=== PATIENT | male | born 1985 | race Caucasian/White ===

== ENCOUNTER 2018-01-17 08:48 | Emergency (ER) | payer MEDICARE, MEDICAID ==
[2018-01-17 09:28] LABS: Basophils # (auto) 0.1 uL; Basophils % (auto) 0.5 % (0.0-2.0); Eosinophils # (auto) 0.1 uL; Eosinophils % (auto) 0.7 % (0.0-7.0); Hematocrit 48.8 % (41.0-53.0); Hemoglobin 17.2 g/dL (13.5-17.5); Lymphocytes # (auto) 1.8 uL; Lymphocytes % (auto) 19.2 % (10.0-50.0); Mean Corpuscular Hemoglobin 32.9 pg (28.0-32.0); Mean Corpuscular Hgb Conc. 35.3 g/dL (32.0-36.0); Mean Corpuscular Volume 93.1 fL (80.0-100.0); Monocytes # (auto) 1.3 uL; Monocytes % (auto) 13.9 % (0.0-12.0); Neutrophils # (auto) 6.1 uL; Neutrophils % (auto) 65.7 % (37.0-80.0); Nucleated Red Blood Cells % 0.1 %; Platelet Count (auto) 202 10^3/uL (140-450); Red Blood Cells 5.24 10^6/uL (4.5-5.90); Red Cell Distribution Width 12.9 % (11.8-14.3); White Blood Cell 9.3 10^3/uL (4.4-10.8)
[2018-01-17 10:01] LABS: Alanine Aminotransferase 105 U/L (16-61); Albumin 4.2 g/dL (3.4-5.0); Alkaline Phosphatase 109 U/L (45-117); Anion Gap 8 (5-15); Aspartate Aminotransferase 109 U/L (15-37); BUN/Creatinine Ratio 29.7; Bilirubin, Total 1.1 mg/dL (0.2-1.0); Blood Alcohol < 3.0 mg/dL (0-5); Blood Urea Nitrogen 22 mg/dL (7-18); Calcium 9.1 mg/dL (8.5-10.1); Carbon Dioxide 26 mmol/L (21-32); Chloride 100 mmol/L (98-107); GFR African American 160 mL/min; GFR Non-African American 132 mL/min; Glucose 96 mg/dL (74-106); Potassium 4.1 mmol/L (3.5-5.1); Sodium 134 mmol/L (136-145); Total Protein 7.5 g/dL (6.4-8.2)
[2018-01-17] MEDS ORDERED: SODIUM CHLORIDE 0.9% 1,000 ML IV ONE (12:48)
[2018-01-17] MEDS ORDERED: LORazepam 2MG/ML-1ML VIAL IV ONE (13:00)
[2018-01-17 14:40] LABS: Urine Bacteria NONE SEEN /hpf (None Seen); Urine Blood Negative /uL (Negative); Urine Mucus FEW (None Seen); Urine Specific Gravity 1.013 (1.001-1.035); Urine WBC <1 /hpf (0 - 3)
[2018-01-17 14:57] LABS: Alcohol, Urine < 3.0 mg/dL (0-5); Amphetamine Screen, Urine POSITIVE (NEGATIVE); Barbiturate Scree,Urine NEGATIVE (NEGATIVE); Benzodiazephine Screen, Urine NEGATIVE (NEGATIVE); Cannabinoid Screen, Urine POSITIVE (NEGATIVE); Cocaine Screen, Urine NEGATIVE (NEGATIVE); Opiate Scree,Urine NEGATIVE (NEGATIVE); Phencyclidine Screen, Urine NEGATIVE (NEGATIVE)
[2018-01-17 16:18] VITALS: BP 122/79
[2018-01-17] MEDS ORDERED: PHENYTOIN SODIUM 100 MG CAP PO ONE (17:00)
== END 2018-01-17 17:15 | disposition home or self-care (01) ==
LOC: ER 08:51
DX: G40.909 Epilepsy, unspecified, not intractable, without status epilepticus (principal); R89.2 Abnormal level of other drugs, medicaments and biological substances in specimens from other organs, systems and tissues; F15.10 Other stimulant abuse, uncomplicated; F12.10 Cannabis abuse, uncomplicated; F17.210 Nicotine dependence, cigarettes, uncomplicated
CPT/HCPCS: 36415; 70450; 80053; 80185; 80307; 80320; 81001; 83735; 85025; 96374; 99285; J2060

== ENCOUNTER 2018-01-24 20:10 | Emergency (ER) | payer MEDICARE, MEDICAID ==
[~2018-01-24] VITALS: Ht 180.3 cm; Wt 95.3 kg
[2018-01-24 20:18] VITALS: BP 131/87
== END 2018-01-25 01:36 | disposition left against medical advice (07) ==
LOC: EDBD 20:10 → ER 20:10
DX: S01.81XA Laceration without foreign body of other part of head, initial encounter (principal); Z53.21 Procedure and treatment not carried out due to patient leaving prior to being seen by health care provider; Y08.89XA Assault by other specified means, initial encounter; Y93.89 Activity, other specified; Y99.8 Other external cause status; Y92.89 Other specified places as the place of occurrence of the external cause

== ENCOUNTER 2019-04-22 19:25 | Emergency (ER) | payer MEDICARE, MEDICAID ==
[~2019-04-22] VITALS: Ht 182.9 cm; Wt 122.5 kg
[2019-04-22] MEDS ORDERED: PHENYTOIN SODIUM 100 MG CAP PO ONE (19:45)
[2019-04-22] MEDS ORDERED: PHENYTOIN IV DILANTIN 500 MG in SODIUM CHL 0.9% 100 ML IV ONE (19:45)
[2019-04-22 20:06] LABS: Eosinophils # (auto) 0.2 uL; Nucleated Red Blood Cells % 0.1 %
[2019-04-22 20:12] LABS: Basophils # (auto) 0.1 uL; Basophils % (auto) 0.9 % (0.0-2.0); Eosinophils % (auto) 1.6 % (0.0-7.0); Hematocrit 50.1 % (41.0-53.0); Hemoglobin 17.7 g/dL (13.5-17.5); Lymphocytes # (auto) 2.6 uL; Lymphocytes % (auto) 26.7 % (10.0-50.0); Mean Corpuscular Hemoglobin 32.6 pg (28.0-32.0); Mean Corpuscular Hgb Conc. 35.3 g/dL (32.0-36.0); Mean Corpuscular Volume 92.2 fL (80.0-100.0); Monocytes # (auto) 1.2 uL; Monocytes % (auto) 12.2 % (0.0-12.0); Neutrophils # (auto) 5.6 uL; Neutrophils % (auto) 58.6 % (37.0-80.0); Platelet Count (auto) 240 10^3/uL (140-450); Red Blood Cells 5.43 10^6/uL (4.5-5.90); White Blood Cell 9.6 10^3/uL (4.4-10.8)
[2019-04-22 20:19] VITALS: BP 120/85
[2019-04-22 20:25] LABS: Albumin 3.5 g/dL (3.4-5.0); BUN/Creatinine Ratio 14.1; Calcium 8.6 mg/dL (8.5-10.1); Potassium 3.6 mmol/L (3.5-5.1)
[2019-04-22 20:27] LABS: Bilirubin, Total 0.4 mg/dL (0.2-1.0); Total Protein 6.7 g/dL (6.4-8.2)
[2019-04-22] MEDS ORDERED: HYDROcodone-ACET 10/325MG TAB PO ONE (21:30)
== END 2019-04-22 22:38 | disposition home or self-care (01) ==
LOC: ER 19:26
DX: M79.605 Pain in left leg (principal); M79.604 Pain in right leg; F17.210 Nicotine dependence, cigarettes, uncomplicated; F12.10 Cannabis abuse, uncomplicated; G40.802 Other epilepsy, not intractable, without status epilepticus
CPT/HCPCS: 36415; 80053; 80320; 85025; 93005; 94761; 96365; 99284; J1165; 80307

== ENCOUNTER 2023-05-24 14:33 | Inpatient (IN) | payer OTHER, MEDICAID ==
[~2023-05-24] VITALS: Ht 182.9 cm; Wt 109.1 kg
[2023-05-24] MEDS ORDERED: LORazepam 2MG/ML-1ML VIAL IM ONE (14:45)
[2023-05-24 15:10] LABS: Basophils # (auto) 0 10 ^3/uL (0-0.2); Basophils % (auto) 0.3 % (0.0-2.0); Eosinophils # (auto) 0.1 10 ^3/uL (0-0.8); Eosinophils % (auto) 0.5 % (0.0-7.0); Hematocrit 49.8 % (41.0-53.0); Hemoglobin 17.5 g/dL (13.5-17.5); Lymphocytes # (auto) 1.4 10 ^3/uL (0.4-5.4); Lymphocytes % (auto) 14.4 % (10.0-50.0); Mean Corpuscular Hemoglobin 32.6 pg (28.0-32.0); Mean Corpuscular Hgb Conc. 35.1 g/dL (32.0-36.0); Mean Corpuscular Volume 92.8 fL (80.0-100.0); Monocytes # (auto) 0.8 10 ^3/uL (0-1.3); Monocytes % (auto) 7.7 % (0.0-12.0); Neutrophils # (auto) 7.6 10 ^3/uL (1.6-8.6); Neutrophils % (auto) 77.1 % (37.0-80.0); Nucleated Red Blood Cells % 0.2 %; Red Blood Cells 5.36 10^6/uL (4.5-5.90); Red Cell Distribution Width 12.9 % (11.8-14.3); White Blood Cell 9.9 10^3/uL (4.4-10.8)
[2023-05-24 15:35] LABS: Alanine Aminotransferase 38 U/L (7-40); Albumin 4.7 g/dL (3.2-4.8); Alkaline Phosphatase 70 U/L (46-116); Anion Gap 7 (5-15); Aspartate Aminotransferase 21 U/L (13-40); Bilirubin, Total 0.5 mg/dL (0.2-1.0); Calcium 9.7 mg/dL (8.5-10.1); Carbon Dioxide 26 mmol/L (20-30); Chloride 106 mmol/L (98-107); Glucose 94 mg/dL (74-106); Potassium 3.8 mmol/L (3.5-5.1); Sodium 139 mmol/L (136-145)
[2023-05-24 15:36] LABS: Total Protein 7.2 g/dL (5.7-8.2)
[2023-05-24] MEDS ORDERED: LABETALOL HCL 5 MG/ML 4ML SYRINGE IV ONE (15:45)
[2023-05-24 15:47] LABS: BUN/Creatinine Ratio 6.4 (10.0-20.0); Blood Urea Nitrogen < 5 mg/dL (9-23)
[2023-05-24 15:55] VITALS: PULSE 91; RESP 16; O2SAT 96
[2023-05-24 19:21] LABS: Urine Bacteria NONE SEEN /hpf (None Seen); Urine Blood Negative /uL (Negative); Urine Clarity Clear (Clear); Urine Color Colorless (Yellow); Urine Protein, UAD Negative (Negative); Urine Specific Gravity 1.009 (1.001-1.035); Urine Urobilinogen Normal (Negative); Urine WBC <1 /hpf (0 - 3); Urine pH 7.5 (5.0-8.0)
[2023-05-24 19:30] LABS: Amphetamine Screen, Urine Neg (NEGATIVE); Barbiturate Scree,Urine Neg (NEGATIVE); Benzodiazephine Screen, Urine Neg (NEGATIVE); Cannabinoid Screen, Urine Pos (NEGATIVE); Cocaine Screen, Urine Neg (NEGATIVE); Opiate Scree,Urine Neg (NEGATIVE); Phencyclidine Screen, Urine Neg (NEGATIVE)
[2023-05-24 20:15] VITALS: PULSE 97; RESP 25; O2SAT 93
[2023-05-24] MEDS ORDERED: ACETAMINOPHEN 325 MG TAB PO PRN (22:15)
[2023-05-24] MEDS ORDERED: LORazepam 2MG/ML-1ML VIAL IV PRN (22:15)
[2023-05-24] MEDS ORDERED: DOCUSATE SOD 100 MG CAP PO PRN (22:15)
[2023-05-24] MEDS ORDERED: ONDANSETRON HCL 4 MG/2 ML VIAL IV PRN (22:15)
[2023-05-24] MEDS ORDERED: MORPHINE SULFATE INJ 2 MG/ml SYRG IV PRN (22:15)
[2023-05-24] MEDS ORDERED: NITROGLYCERIN 0.4 MG SL TAB SL PRN (22:15)
[2023-05-24] MEDS ORDERED: RISP4TAB53 PO (22:39)
[2023-05-24] MEDS ORDERED: VORT10TA PO (22:39)
[2023-05-24] MEDS ORDERED: QUET300T14 PO (22:39)
[2023-05-24] MEDS ORDERED: GABA-1308 PO (22:39)
[2023-05-24] MEDS: SODIUM CHLORIDE 0.9% 1,000 ML IV SCH (22:44)
[2023-05-25 11:04] LABS: Basophils # (auto) 0.1 10 ^3/uL (0-0.2); Basophils % (auto) 0.7 % (0.0-2.0); Eosinophils # (auto) 0.1 10 ^3/uL (0-0.8); Eosinophils % (auto) 1.4 % (0.0-7.0); Hematocrit 48.5 % (41.0-53.0); Lymphocytes # (auto) 2.2 10 ^3/uL (0.4-5.4); Lymphocytes % (auto) 28.9 % (10.0-50.0); Mean Corpuscular Hemoglobin 32.8 pg (28.0-32.0); Mean Corpuscular Volume 93.6 fL (80.0-100.0); Monocytes # (auto) 0.6 10 ^3/uL (0-1.3); Monocytes % (auto) 8.1 % (0.0-12.0); Neutrophils # (auto) 4.6 10 ^3/uL (1.6-8.6); Neutrophils % (auto) 60.9 % (37.0-80.0); Nucleated Red Blood Cells % 0.3 %; Red Blood Cells 5.18 10^6/uL (4.5-5.90); Red Cell Distribution Width 12.9 % (11.8-14.3); White Blood Cell 7.6 10^3/uL (4.4-10.8)
[2023-05-25 11:20] LABS: Anion Gap 6 (5-15); BUN/Creatinine Ratio 5.6 (10.0-20.0); Blood Urea Nitrogen 5 mg/dL (9-23); Calcium 9.4 mg/dL (8.5-10.1); Carbon Dioxide 26 mmol/L (20-30); Chloride 106 mmol/L (98-107); Glucose 86 mg/dL (74-106); Sodium 138 mmol/L (136-145)
[2023-05-25 13:13] VITALS: BP 153/79; PULSE 113; RESP 17; O2SAT 94
[2023-05-25] MEDS: SODIUM CHLORIDE 0.9% 1,000 ML IV SCH (15:33)
== END 2023-05-25 22:41 | disposition left against medical advice (07) | DRG 101 ==
LOC: EDUNIT# 14:33 → ER 14:33 → EDBD 14:33 → TELE 22:13
PROVIDERS: ADMIT Nurse Practitioner Family; ATTEND Nurse Practitioner Family
DX: R56.9 Unspecified convulsions (principal); F17.210 Nicotine dependence, cigarettes, uncomplicated; F25.9 Schizoaffective disorder, unspecified; F31.9 Bipolar disorder, unspecified; G20.A1 Parkinson's disease without dyskinesia, without mention of fluctuations; Z53.21 Procedure and treatment not carried out due to patient leaving prior to being seen by health care provider; Z79.899 Other long term (current) drug therapy
CPT/HCPCS: 36415; 70450; 80048; 80053; 80307; 81001; 85025; G0378

== ENCOUNTER 2025-02-03 11:38 | Inpatient (IN) | payer OTHER ==
[~2025-02-03] VITALS: Ht 182.9 cm; Wt 94.0 kg
[~2025-02-03 11:38] MED LIST: GABA-1308 PO; QUET300T14 PO; RISP4TAB53 PO; VORT10TA PO
--- NOTE | 2025-02-03 11:44 | ED.PDOC ---
GI ASSESSMENT HPI Comments 39 year old male presents to the ED via EMS with a chief complaint of abdominal pain onset 3 months. Patient states he has been experiencing diffused abdominal pain for the past 3 months, after cholecystectomy surgery. He is also experiencing nausea/vomiting. Upon EMS arrival, patient showed them an empty bottle of green tea extract that , patient states he took the whole bottle, also states he took 2 boxes Benadryl, wanted to "hurt himself". Rates pain 05/23. PMHx depression,schizophrenia, seizures. No other symptoms or modifying factors present at this time. Time Seen by MD: 11:38 Primary Care Provider: NICK Reviewed Notes: Medications, Allergies Allergies: Coded Allergies: NO KNOWN ALLERGIES (Unverified , 01/17/18) Home Meds Reported Medications Vortioxetine Hydrobromide (Trintellix) 10 Mg Tab, 15 MG PO QPM, TAB 05/24/23 Risperidone (Risperidone) 4 Mg Tab, 4 MG PO BID, TAB 05/24/23 Gabapentin (Gabapentin) 100 Mg Cap, 100 MG PO BID, CAP 05/24/23 Quetiapine Fumerate (Seroquel) 300 Mg Tab, 200 MG PO QPM, TAB 05/24/23 Information Source: Patient Mode of Arrival: Ambulatory Timing: Months Duration: Since onset Prehospital treatment: None Quality: Aching, Sharp Severity: Moderate Recent: None Recent Hx of: None Pain Location: Diffuse Associated sign and symptoms: Nausea, Vomiting, Abdominal Pain Past Medical History PAST MEDICAL HISTORY: Depression, Schizophrenia, Seizures Surgical History: Cholecystectomy Family History Family History: No family hx of Liver aniyah, No family hx of Lung aniyah, No family hx of Stroke Social History Smoker: Cigarettes Alcohol: Occasionally Drugs: Marijuana Lives In: Home Constitutional: denies: chills, diaphoresis, fatigue, fever, malaise, sweats, weakness, others EENTM: denies: blurred vision, double vision, ear bleeding, ear discharge, ear drainage, ear pain, ear ringing, eye pain, eye redness, hearing loss, mouth pain, mouth swelling, nasal discharge, nose bleeding, nose congestion, nose pain, photophobia, tearing, throat pain, throat swelling, voice changes, others Respiratory: denies: cough, hemoptysis, orthopnea, SOB at rest, shortness of breath, SOB with excertion, stridor, wheezing, others Cardiovascular: denies: chest pain, dizzy spells, diaphoresis, Dyspnea on exertion, edema, irregular heart beat, left arm pain, lightheadedness, palpitations, PND, syncope, others Gastrointestinal: reports: abdominal pain, nausea, poor appetite, vomiting; denies: abdomen distended, blood streaked bowels, constipated, diarrhea, dysphagia, difficulty swallowing, hematemesis, melena, poor fluid intake, rectal bleeding, rectal pain, others Genitourinary: denies: burning, dysuria, flank pain, frequency, hematuria, incontinence, penile discharge, penile sore, pain, testicle pain, testicle swelling, urgency, others Neurological: denies: dizziness, fainting, headache, left sided numbness, left sided weakness, numbness, paresthesia, pre-existing deficit, right sided numbness, right sided weakness, seizure, speech problems, tingling, tremors, weakness, others Musculoskeletal: denies: back pain, gout, joint pain, joint swelling, muscle pain, muscle stiffness, neck pain, others Integumetry: denies: bruises, change in color, change in hair/nails, dryness, laceration, lesions, lumps, rash, wounds, others Allergic/Immunocompromised: denies: Difficulty Healing, Frequent Infections, Hives, Itching, others Hematologic/Lymphatic: denies: anemia, blood clots, easy bleeding, easy bruising, swollen glands, others Endocrine: denies: excessive hunger, excessive sweating, excessive thirst, excessive urination, flushing, intolerance to cold, intolerance to heat, unexplained weight gain, unexplained weight loss, others Psychiatric: reports: suicidal; denies: anxiety, bipolar disorder, depression, hopeless, panic disorder, schizophrenia, sleepless, others All Other Systems: Reviewed and Negative Physical Exam General Appearance: Moderate Distress, Normal HEENT: Normal ENT Inspection, Pharynx Normal, TMs Normal Neck: Full Range of Motion, Non-Tender, Normal, Normal Inspection Respiratory: Chest Non-Tender, Lungs Clear, No Accessory Muscle Use, No Respiratory Distress, Normal Breath Sounds Cardiovascular: No Edema, No JVD, No Murmur, No Gallop, Normal Peripheral Pulses, Regular Rate/Rhythm Breast Exam: Deferred Gastrointestinal: No Organomegaly, Non Tender, No Pulsatile Mass, Normal Bowel Sounds, Soft Genitalia: Deferred Pelvic: Deferred Rectal: Deferred Extremities: No calf tenderness, Normal capillary refill, Normal inspection, Normal range of motion, Non-tender, No pedal edema Musculoskeletal : Apperance: Normal Neurologic: Alert, client coordinator II-XII nml as Tested, No Motor Deficits, Normal Affect, Normal Mood, No Sensory Deficits Cerebellar Function: Normal Reflexes: Normal Skin: Dry, Normal Color, Warm Peripheral Pulses: 3+ Radial (R), 3+ Radial (L) Lymphatic: No Adenopathy Was a procedure done? Was a procedure done?: No GI differential Dx Differential Diagnosis: Constipation, Diverticular disease, Esophagitis, Gastritis/PUD, Gastroenteritis X-Ray, Labs, Meds, VS Vital Signs Date Time Temp Pulse Resp B/P (MAP) Pulse Ox O2 Delivery O2 Flow Rate FiO2 02/03/25 13:52 115 20 125/89 (101) 97 02/03/25 12:53 153 22 Room Air* 0 21 02/03/25 12:52 97.5 153 22 116/63 (80) 94 97.5 02/03/25 12:42 153 22 116/63 02/03/25 11:57 98.9 105 14 128/81 (97) 100 98.9 Lab Test 02/03/25 15:12 02/03/25 13:05 Range/Units Lactic Acid Level 3.4 *H 0.4-2.0 mmol/L White Blood Count 27.1 H 4.4-10.8 10^3/uL Red Blood Count 6.15 H 4.5-5.90 10^6/uL Hemoglobin 20.4 H 13.5-17.5 g/dL Hematocrit 56.1 H 41.0-53.0 % Mean Corpuscular Volume 91.2 80.0-100.0 fL Mean Corpuscular Hemoglobin 33.2 H 28.0-32.0 pg Mean Corpuscular Hemoglobin Concent 36.4 H 32.0-36.0 g/dL Red Cell Distribution Width 12.3 11.8-14.3 % Platelet Count 339 140-450 10^3/uL Mean Platelet Volume 10.2 6.9-10.8 fL Neutrophils (%) (Auto) 37.0-80.0 % Lymphocytes (%) (Auto) 10.0-50.0 % Monocytes (%) (Auto) 0.0-12.0 % Basophils (%) (Auto) 0.0-2.0 % Neutrophils # (Auto) 1.6-8.6 10 ^3/uL Lymphocytes # (Auto) 0.4-5.4 10 ^3/uL Monocytes # (Auto) 0-1.3 10 ^3/uL Differential Total Cells Counted 100.0 100 Neutrophils % (Manual) 86 H 37.0-80.0 Band Neutrophils % (Manual) 2 Lymphocytes % (Manual) 10 10.0-50.0 Monocytes % (Manual) 2 0-12 Eosinophils % (Manual) 0 0-7 Basophils % (Manual) 0 0.0-2.0 Metamyelocytes % (manual) 0 Myelocytes % (Manual) 0 Promyelocytes % (Manual) 0 Blast Cells % (Manual) 0 Reactive Lymphocytes 0 Platelet Estimate Adequate Sodium Level 138 136-145 mmol/L Potassium Level 2.9 L 3.5-5.1 mmol/L Chloride Level 97 L 98-107 mmol/L Carbon Dioxide Level 19 L 20-31 mmol/L Anion Gap 22 H 5-15 Blood Urea Nitrogen 10 9-23 mg/dL Creatinine 1.41 H 0.700-1.30 mg/dL Glomerular Filtration Rate Calc 66 >90 mL/min BUN/Creatinine Ratio 7.1 L 10.0-20.0 Serum Glucose 169 H 74-106 mg/dL Calcium Level 10.1 8.7-10.4 mg/dL Current Medications Medications (Trade) Dose Ordered Sig/Nicolas Route Start Time Stop Time Status Last Admin Sodium Chloride 1,000 ml @ 1,000 mls/hr Q1H ONCE IV 02/03/25 12:00 02/03/25 12:59 DC 02/03/25 12:40 Lorazepam (Ativan Inj) 1 mg ONCE ONCE IV 02/03/25 12:15 02/03/25 12:16 DC 02/03/25 12:34 Ondansetron HCl (Zofran) 4 mg ONCE ONCE IV 02/03/25 12:15 02/03/25 12:16 DC 02/03/25 12:34 Morphine Sulfate 2 mg ONCE ONCE IV 02/03/25 12:45 02/03/25 12:46 DC 02/03/25 12:42 Metronidazole 100 ml @ 100 mls/hr ONCE ONCE IV 02/03/25 15:15 02/03/25 16:14 DC 02/03/25 16:30 Sodium Chloride 1,000 ml @ 1,000 mls/hr Q1H ONCE IV 02/03/25 15:15 02/03/25 16:14 DC 02/03/25 16:30 Potassium Bicarbonate (Klor-Con/Ef) 50 meq ONCE ONCE PO 02/03/25 15:15 02/03/25 15:16 DC 02/03/25 16:30 Patient alert. Complaining of abdominal discomfort. Has been having symptoms for many months. Vitals stable. Establish intravenous access. Was given fluids. Was given Ativan. Abdomen is soft nontender. No sign of any sepsis. WBC elevated. His blood pressure was within normal limits. Was given Zosyn. Was given Flagyl. Blood sugar elevated. Controlled with fluids. Psychiatric evaluation after medical the cleared. Continue monitoring. CT scan of the abdomen does show possible colitis. Time of 1ST Reevaluation: 12:08 Reevaluation 1ST: Unchanged Patient Education/Counseling: Diagnosis, Treatment, Prognosis Family Education/Counseling: No Family Present SEPSIS Sepsis Screen Physician Orders Sodium Chloride 0.9% (02/03/25 12:00) *Tele Psych Consult (02/03/25 12:15) Ct Ab Pel Wo Con-No Oral Or Iv (02/03/25 12:41) Blood Culture (02/03/25 15:01) Morphine Sulfate Injection (02/03/25 16:45) Vital Signs Date Time Temp Pulse Resp B/P (MAP) Pulse Ox O2 Delivery O2 Flow Rate FiO2 02/03/25 13:52 115 20 125/89 (101) 97 02/03/25 12:53 153 22 Room Air* 0 21 02/03/25 12:52 97.5 153 22 116/63 (80) 94 97.5 02/03/25 12:42 153 22 116/63 02/03/25 11:57 98.9 105 14 128/81 (97) 100 98.9 Laboratory Tests Test 02/03/25 13:05 02/03/25 15:12 White Blood Count 27.1 10^3/uL (4.4-10.8) H Lactic Acid Level 3.4 mmol/L (0.4-2.0) *H Medications Medications Dose Ordered Sig/Nicolas Route Start Time Stop Time Status Last Admin Dose Admin Lorazepam 1 mg ONCE ONCE IV 02/03/25 12:15 02/03/25 12:16 DC 02/03/25 12:34 Metronidazole 100 ml @ 100 mls/hr ONCE ONCE IV 02/03/25 15:15 02/03/25 16:14 DC 02/03/25 16:30 Morphine Sulfate 2 mg ONCE ONCE IV 02/03/25 12:45 02/03/25 12:46 DC 02/03/25 12:42 Ondansetron HCl 4 mg ONCE ONCE IV 02/03/25 12:15 02/03/25 12:16 DC 02/03/25 12:34 Potassium Bicarbonate 50 meq ONCE ONCE PO 02/03/25 15:15 02/03/25 15:16 DC 02/03/25 16:30 Sodium Chloride 1,000 ml @ 1,000 mls/hr Q1H ONCE IV 02/03/25 12:00 02/03/25 12:59 DC 02/03/25 12:40 Sodium Chloride 1,000 ml @ 1,000 mls/hr Q1H ONCE IV 02/03/25 15:15 02/03/25 16:14 DC 02/03/25 16:30 Departure 1 Departure Time of Disposition: 12:10 Impression: Primary Impression: Nonspecific colitis Additional Impressions: Acute abdominal pain Suicidal ideation Hyperglycemia Hypokalemia Disposition: ADMITTED INPATIENT Admit to: Med Surg Condition: Guarded Critical Care Note Critical Care Time?: Yes (45 min-critical care time only) Critical care comment: Monitor electrolytes Stability Stability form required: No Heart Score Heart Score: Heart Score Response (Comments) Value History N/A 0 EKG N/A 0 Age N/A 0 Risk Factors N/A 0 Troponin N/A 0 Total 0 I personally scribed for ADRIANA RODRIGUEZ MD ([email or web address]) on 02/03/25 at 11:44. Electronically submitted by Marleni Mitchell ([email or web address]). I personally scribed for ADRIANA RODRIGUEZ MD ([email or web address]) on 02/03/25 at 11:55. Electronically submitted by Marleni Mitchell ([email or web address]). ADRIANA RODRIGUEZ MD Feb 03, 2025 11:44
[2025-02-03] MEDS ORDERED: MORPHINE SULFATE INJ 2 MG/ml SYRG IV ONE ×2 (12:15→16:30)
[2025-02-03] MEDS: LORazepam 2MG/ML-1ML VIAL IV ONE (12:34)
[2025-02-03] MEDS: ONDANSETRON HCL 4 MG/2 ML VIAL IV ONE ×2 (12:34→16:50)
[2025-02-03] MEDS: SODIUM CHLORIDE 0.9% 1,000 ML IV ONE ×3 (12:40→18:03)
[2025-02-03] MEDS: MORPHINE SULFATE 4 MG/ML SYR/VIAL IV ONE ×2 (12:42→16:51)
[2025-02-03 12:53] VITALS: PULSE 153; RESP 22
[2025-02-03 13:23] LABS: Sodium 138 mmol/L (136-145)
[2025-02-03 13:24] LABS: Anion Gap 22 (5-15); Calcium 10.1 mg/dL (8.7-10.4)
[2025-02-03 13:26] LABS: Carbon Dioxide 19 mmol/L (20-31); Chloride 97 mmol/L (98-107); Potassium 2.9 mmol/L (3.5-5.1)
[2025-02-03 13:29] LABS: BUN/Creatinine Ratio 7.1 (10.0-20.0); Blood Urea Nitrogen 10 mg/dL (9-23)
[2025-02-03 13:30] LABS: Glucose 169 mg/dL (74-106)
[2025-02-03 13:33] LABS: Hematocrit 56.1 % (41.0-53.0); Hemoglobin 20.4 g/dL (13.5-17.5); Mean Corpuscular Hemoglobin 33.2 pg (28.0-32.0); Mean Corpuscular Volume 91.2 fL (80.0-100.0)
[2025-02-03 14:36] LABS: Total Cells Counted 100.0 (100)
--- NOTE | 2025-02-03 14:41 | DVH ---
Exam: CT CT AB PEL WO CON-NO ORAL OR IV History: colitis Comparison Study: None Technique: Multidetector spiral CT of the abdomen was performed from lung bases to pubic symphysis. I maging was performed without IV contrast. Axial, coronal and sagittal multiplanar reformats were obta ined from the axial data set by the technologist. Radiation Dose : 1. Abdomen/Pelvis: CTDIvol 15.5 mGy, DLP 900.5 mGy*cm. Findings: Evaluation of solid organs is limited due to lack of intravenous contrast use. Lung Bases: No acute or significant lung base finding. Normal heart size. No pleural or pericardial effusion. Liver: The liver is normal in size. No focal lesions. Gallbladder and Biliary Tree: Unremarkable Spleen: Unremarkable Pancreas: The pancreas is grossly normal in appearance. Adrenal Glands: Unremarkable Kidneys: Kidneys are grossly normal without calculi or hydronephrosis. Bladder: Distended Bowel: Moderate thickening of the distal esophagus. Distended stomach. Moderate colonic stool. The ap pendix is not visualized; however, no secondary findings of acute appendicitis identified. Ascites: Absent Lymphadenopathy: No mesenteric, retroperitoneal or periportal lymphadenopathy. Abdominal Wall and Mesentery: Unremarkable. Vasculature: The visualized abdominal aorta is normal in size and caliber. Evaluation of abdominal a nd pelvic vessels is limited due to lack of intravenous contrast. Pelvic Organs: Unremarkable Musculoskeletal: No aggressive focal bony lesions, acute fractures or dislocation. IMPRESSION: Limited examination secondary to patient motion artifact. Moderate volume colonic stool. Distended urinary bladder. Nonspecific thickening of the distal esophagus and moderately distended stomach. Moderate bowel wall thickening of the descending colon; possibly colitis.
[2025-02-03] MEDS ORDERED: PIPERACILLIN-TAZOB 3.375GM 100 ML IV ONE (15:15)
[2025-02-03 15:54] LABS: Lactic Acid w/Reflex 3.4 mmol/L (0.4-2.0)
[2025-02-03] MEDS: POTASSIUM EFFERVESENT TAB 25 MEQ PO ONE (16:30)
[2025-02-03] MEDS: SODIUM CHLORIDE 0.9% 1,000 ML IV SCH (16:45)
[2025-02-03] MEDS ORDERED: MORPHINE SULFATE INJ 2 MG/ml SYRG IV PRN (16:45)
[2025-02-03] MEDS ORDERED: NITROGLYCERIN 0.4 MG SL TAB SL PRN (16:45)
[2025-02-03] MEDS: PIPERACILLIN-TAZOB 3.375GM 100 ML IV ONE (18:04)
--- NOTE | 2025-02-04 00:08 | DVHHP2 ---
JAIRO CASTILLO STORE HAND 02/04/25 0008: History of Present Illness Reason for Visit: Abdominal pain / suicidal ideation History of Present Illness 39-year-old male presents with complaints of abdominal pain x3 months. Patient endorses multiple episodes of diarrhea. Also endorses suicidal ideation with attempt to harm himself. Earlier reported that he took 2 boxes of Benadryl. During the emergency department evaluation CBC: W27.1, H and H 20.4/56.1, PLT 339. BMP: Na 138, K2.9, BUN 10, creatinine 1.41, LA 3.4/3.2. CT of the abdomen and pelvis the present possible colitis. There are no complaints of fevers, chills, chest pain, shortness of breath, hematemesis, hematochezia, melena. At this time patient is admitted for further treatment and evaluation including psychiatric evaluation. COURT REPORTER: Seizure Psych: Anxiety, Addictions Past Social History Declined to disclose social history Review of Systems Constitutional: No: Fever, Chills, Sweats, Weakness, Malaise, Other Eyes: No: Pain, Vision change, Conjunctivae inflammation, Eyelid inflammation, Other, Redness ENT: No: Ear pain, Ear discharge, Nose pain, Nose discharge, Nose congestion, Mouth pain, Mouth swelling, Throat pain, Throat swelling, Other Respiratory: No: Cough, Dry, Shortness of breath, SOB with excertion, Wheezing, Hemoptysis, Pleuritic Pain, Sputum, Wheezing, Other Cardiovascular: No: Chest Pain, Palpitations, Orthopnea, Paroxysmal Noc. Dyspnea, Edema, Lt Headedness, Other Gastrointestinal: Nausea, Vomiting, Abdominal Pain, Diarrhea; No: Constipation, Melena, Hematochezia, Other Genitourinary: No Dysuria, No Frequency, No Incontinence, No Hematuria, No Retention, No Other Musculoskeletal: No: other, neck pain, shoulder pain, arm pain, back pain, hand pain, leg pain, foot pain Skin: No: Rash, Lesions, Jaundice, Bruising, Other Neurological: No: Weakness, Numbness, Incoordination, Change in speech, Confusion, Seizures, Other Other suicidal ideation Allergies: Coded Allergies: NO KNOWN ALLERGIES (Unverified , 01/17/18) Medications Current Medications Medications Dose Ordered Sig/Nicolas Route Start Time Stop Time Status Last Admin Dose Admin Sodium Chloride 1,000 ml @ 120 mls/hr Q8H20M IV 02/03/25 16:45 Acetaminophen/ Hydrocodone Bitart 1 tab Q4HP PRN PO 02/03/25 16:45 Ondansetron HCl 4 mg Q4HP PRN IV 02/03/25 16:45 Enoxaparin Sodium 40 mg DAILY SC 02/04/25 10:00 Acetaminophen 650 mg Q6HP PRN PO 02/03/25 16:45 Morphine Sulfate 2 mg Q4HPRN PRN IV 02/03/25 16:45 Nitroglycerin 0.4 mg Q5MINP PRN SL 02/03/25 16:45 Morphine Sulfate 2 mg Q30M PRN IV 02/03/25 16:45 Piperacillin Sod/ Tazobactam Sod 100 ml @ 25 mls/hr Q6HR IV 02/04/25 00:00 Exam Vital Signs Vital Signs Date Time Temp Pulse Resp B/P (MAP) Pulse Ox O2 Delivery O2 Flow Rate FiO2 02/03/25 20:02 Room Air* 0 21 02/03/25 20:02 97.6 111 19 119/86 (97) 96 97.6 General Appearance: Alert, Oriented X3, mild distress HEENT: Atraumatic, PERRLA Respiratory: Clear to auscultation, Normal air movement Cardiovascular: Regular rate, Normal S1, Normal S2 Abdominal: Normal bowel sounds, Soft, No tenderness Extremities: No clubbing, No cyanosis, No edema Skin: No rashes Psych/Mental Status: Other (Anxious appearing) Labs/Xrays Labs Test 02/03/25 17:20 02/03/25 13:05 Range/Units Lactic Acid Level 3.2 *H 0.4-2.0 mmol/L White Blood Count 27.1 H 4.4-10.8 10^3/uL Red Blood Count 6.15 H 4.5-5.90 10^6/uL Hemoglobin 20.4 H 13.5-17.5 g/dL Hematocrit 56.1 H 41.0-53.0 % Mean Corpuscular Volume 91.2 80.0-100.0 fL Mean Corpuscular Hemoglobin 33.2 H 28.0-32.0 pg Mean Corpuscular Hemoglobin Concent 36.4 H 32.0-36.0 g/dL Red Cell Distribution Width 12.3 11.8-14.3 % Platelet Count 339 140-450 10^3/uL Mean Platelet Volume 10.2 6.9-10.8 fL Neutrophils (%) (Auto) 37.0-80.0 % Lymphocytes (%) (Auto) 10.0-50.0 % Monocytes (%) (Auto) 0.0-12.0 % Basophils (%) (Auto) 0.0-2.0 % Neutrophils # (Auto) 1.6-8.6 10 ^3/uL Lymphocytes # (Auto) 0.4-5.4 10 ^3/uL Monocytes # (Auto) 0-1.3 10 ^3/uL Differential Total Cells Counted 100.0 100 Neutrophils % (Manual) 86 H 37.0-80.0 Band Neutrophils % (Manual) 2 Lymphocytes % (Manual) 10 10.0-50.0 Monocytes % (Manual) 2 0-12 Eosinophils % (Manual) 0 0-7 Basophils % (Manual) 0 0.0-2.0 Metamyelocytes % (manual) 0 Myelocytes % (Manual) 0 Promyelocytes % (Manual) 0 Blast Cells % (Manual) 0 Reactive Lymphocytes 0 Platelet Estimate Adequate Sodium Level 138 136-145 mmol/L Potassium Level 2.9 L 3.5-5.1 mmol/L Chloride Level 97 L 98-107 mmol/L Carbon Dioxide Level 19 L 20-31 mmol/L Anion Gap 22 H 5-15 Blood Urea Nitrogen 10 9-23 mg/dL Creatinine 1.41 H 0.700-1.30 mg/dL Glomerular Filtration Rate Calc 66 >90 mL/min BUN/Creatinine Ratio 7.1 L 10.0-20.0 Serum Glucose 169 H 74-106 mg/dL Calcium Level 10.1 8.7-10.4 mg/dL Assessment/Plan Assessment/Plan Colitis Suicidal ideation with intent to harm self Leukocytosis Lactic acidosis TERELL Hypokalemia Plan Admit telemetry Consult gastroenterology. Full liquid diet. Consult tele psych. 1:1 Sitter. Blood cultures pending. IVF. IV ABX. Monitor BMP. Trend to BUN/creatinine. Correct electrolytes as needed Monitor LA GI ppx protonix / DVT ppx lovenox Plan discussed with: Patient My Orders Orders - AJIRO CASTILLO [facility]ORE [facility] Procedure Category Date Status Time Lactic Acid W/ Reflex LAB 02/04/25 Verified Order 04:00 Date of Service: Feb 04, 2025 Billing Provider: LEVY VILLALTA MD Common Visit Codes: NOT BILLABLE LEVY VILLALTA MD 02/04/25 1730: Review of Systems Allergies: Coded Allergies: NO KNOWN ALLERGIES (Unverified , 01/17/18) Additional Comments Additional Comments Additional Comments 39-year-old male with a known history of depression, schizophrenia, chronic marijuana use, chronic tobacco use disorder initially presented to hospital with a abdominal pain worsening for last three months found to have 1. Acute on chronic abdominal pain suspected colitis 2. Diarrhea rule out C diff 3. Leukocytosis likely reactive secondary to 1. 4. Suicidal ideas and intent, continue one-to-one sitter tele psych has been consulted 5. Previous history of depression and schizophrenia -clear liquid to full liquid diet as tolerated, check stool for C diff, empirical antibiotics, GI consultation -one-to-one sitter, tele psych consultation JAIRO CASTILLO NP Feb 04, 2025 00:08 LEVY VILLALTA MD Feb 04, 2025 17:30
[2025-02-04] MEDS: PIPERACILLIN-TAZOB 3.375GM 100 ML IV SCH (00:29)
[2025-02-04 04:31] LABS: Hematocrit 49.1 % (41.0-53.0); Hemoglobin 17.5 g/dL (13.5-17.5); Mean Corpuscular Hemoglobin 32.8 pg (28.0-32.0); Mean Corpuscular Volume 92.2 fL (80.0-100.0); Nucleated Red Blood Cells % 0.0 %
[2025-02-04 04:47] LABS: Alanine Aminotransferase 17 U/L (7-40); Albumin 4.5 g/dL (3.2-4.8); Alkaline Phosphatase 66 U/L (46-116); Anion Gap 8 (5-15); BUN/Creatinine Ratio 8.4 (10.0-20.0); Bilirubin, Total 0.7 mg/dL (0.2-1.0); Blood Urea Nitrogen 9 mg/dL (9-23); Calcium 9.4 mg/dL (8.7-10.4); Chloride 102 mmol/L (98-107); Glucose 106 mg/dL (74-106); Potassium 4.0 mmol/L (3.5-5.1); Sodium 142 mmol/L (136-145); Total Protein 6.7 g/dL (5.7-8.2)
[2025-02-04 04:49] LABS: Carbon Dioxide 32 mmol/L (20-31)
[2025-02-04 08:30] VITALS: PULSE 90; RESP 18; O2SAT 94
[2025-02-04] MEDS: ENOXAPARIN SOD 40 MG/0.4 ML SYRINGE SC SCH (10:40)
--- NOTE | 2025-02-04 13:36 | DVHINCON2 ---
GI Consult Consult Note GI consult note Date of Consultation: 02/04/2025 Chief Complaint: Colitis Referring Physician: Dr. Guerrero H&P: 39-year-old male presented to ER with complains of abdominal pain for the past three months. Symptoms started after cholecystectomy surgery. Also has history of nausea and vomiting. None at this time. No hematemesis. Denies melena or red blood in stool No EGD or colonoscopy in past Patient also is complaining of back pain Patient has a tele psych consult pending patient says wanted to hurt himself Past Medical History: Depression, schizophrenia, seizures Past Surgical History: Cholecystectomy Social History: Smoker: Cigarettes Alcohol: Occasionally Drugs: Marijuana Lives In: Home Family History: Noncontributory Review of Systems: Constitutional: no fever, chill, weight loss HEENT: no eye pain, no hearing loss, no oral lesion, no scleral icterus Heart: no chest pain, no chest pressure Lung: no cough, no dyspnea with exertion Abdomen: see HPI Physical exam: General: NAD, AAOX3 Chest: lung reddy clear to auscultation Heart: RRR, no murmur Abdomen: non-distended, no tenderness to palpation, +BS Labs: Labs Test 02/04/25 04:15 02/03/25 13:05 Range/Units White Blood Count 16.1 #H 4.4-10.8 10^3/uL Red Blood Count 5.33 4.5-5.90 10^6/uL Hemoglobin 17.5 13.5-17.5 g/dL Hematocrit 49.1 # 41.0-53.0 % Mean Corpuscular Volume 92.2 80.0-100.0 fL Mean Corpuscular Hemoglobin 32.8 H 28.0-32.0 pg Mean Corpuscular Hemoglobin Concent 35.6 32.0-36.0 g/dL Red Cell Distribution Width 12.4 11.8-14.3 % Platelet Count 211 140-450 10^3/uL Mean Platelet Volume 9.3 6.9-10.8 fL Neutrophils (%) (Auto) 79.9 37.0-80.0 % Lymphocytes (%) (Auto) 9.4 L 10.0-50.0 % Monocytes (%) (Auto) 10.1 0.0-12.0 % Eosinophils (%) (Auto) 0.1 0.0-7.0 % Basophils (%) (Auto) 0.5 0.0-2.0 % Neutrophils # (Auto) 12.9 H 1.6-8.6 10 ^3/uL Lymphocytes # (Auto) 1.5 0.4-5.4 10 ^3/uL Monocytes # (Auto) 1.6 H 0-1.3 10 ^3/uL Eosinophils # (Auto) 0 0-0.8 10 ^3/uL Basophils # (Auto) 0.1 0-0.2 10 ^3/uL Nucleated Red Blood Cells 0.0 % Sodium Level 142 136-145 mmol/L Potassium Level 4.0 3.5-5.1 mmol/L Chloride Level 102 98-107 mmol/L Carbon Dioxide Level 32 #H 20-31 mmol/L Anion Gap 8 5-15 Blood Urea Nitrogen 9 9-23 mg/dL Creatinine 1.07 0.700-1.30 mg/dL Glomerular Filtration Rate Calc 92 >90 mL/min BUN/Creatinine Ratio 8.4 L 10.0-20.0 Serum Glucose 106 74-106 mg/dL Lactic Acid Level 1.0 0.4-2.0 mmol/L Calcium Level 9.4 8.7-10.4 mg/dL Total Bilirubin 0.7 0.2-1.0 mg/dL Aspartate Amino Transferase (AST) 24 <34 U/L Alanine Aminotransferase (ALT) 17 7-40 U/L Alkaline Phosphatase 66 46-116 U/L Total Protein 6.7 5.7-8.2 g/dL Albumin 4.5 3.2-4.8 g/dL Differential Total Cells Counted 100.0 100 Neutrophils % (Manual) 86 H 37.0-80.0 Band Neutrophils % (Manual) 2 Lymphocytes % (Manual) 10 10.0-50.0 Monocytes % (Manual) 2 0-12 Eosinophils % (Manual) 0 0-7 Basophils % (Manual) 0 0.0-2.0 Metamyelocytes % (manual) 0 Myelocytes % (Manual) 0 Promyelocytes % (Manual) 0 Blast Cells % (Manual) 0 Reactive Lymphocytes 0 Platelet Estimate Adequate Imaging: CT abdomen pelvis IMPRESSION: Limited examination secondary to patient motion artifact. Moderate volume colonic stool. Distended urinary bladder. Nonspecific thickening of the distal esophagus and moderately distended stomach. Moderate bowel wall thickening of the descending colon; possibly colitis. Assessment: Abdominal pain Possible colitis Plan: Discussed with Dr. Stratton Stool for C diff, WBC, bacterial culture Continue antibiotics Monitor labs Possible Egd tomorrow if patient is stable NPO after midnight Hold Lovenox We will continue to follow patient Thank you for this consult Date of Service: Feb 04, 2025 Billing Provider: MAXIM SPRING Common Visit Codes: CONSULT ONLY Consultation Codes: [id number] CONSULT <60MIN MAXIM SPRING Feb 04, 2025 13:36
[2025-02-04 17:00] VITALS: BP 111/84; PULSE 98; RESP 17; TEMP 99; O2SAT 93
[2025-02-04] MEDS: MORPHINE SULFATE INJ 2 MG/ml SYRG IV PRN (18:46)
[2025-02-04 20:00] VITALS: PULSE 119
[2025-02-04 21:00] VITALS: BP 123/79; PULSE 98; RESP 18; TEMP 99.4; O2SAT 95
[2025-02-05] VITALS (11 sets, daily range): BP systolic 105–128; BP diastolic 61–75; PULSE 67–102; RESP 15–20; TEMP 97.6–99.8; O2SAT 92–98
[2025-02-05] MEDS ORDERED: BENZ1TAB6 PO (09:05)
[2025-02-05] MEDS ORDERED: VORT10TA PO (09:05)
[2025-02-05] MEDS ORDERED: RISP4TAB53 PO (09:05)
[2025-02-05] MEDS ORDERED: OLAN1TAB19 PO (09:05)
[2025-02-05 12:14] LABS: Hematocrit 43.6 % (41.0-53.0); Hemoglobin 15.4 g/dL (13.5-17.5); Mean Corpuscular Hemoglobin 33.0 pg (28.0-32.0); Mean Corpuscular Volume 93.5 fL (80.0-100.0); Nucleated Red Blood Cells % 0.1 %
[2025-02-05 12:24] LABS: Chloride 103 mmol/L (98-107); Potassium 4.2 mmol/L (3.5-5.1); Sodium 142 mmol/L (136-145)
[2025-02-05 12:25] LABS: Anion Gap 6 (5-15); Calcium 9.7 mg/dL (8.7-10.4); Carbon Dioxide 33 mmol/L (20-31)
[2025-02-05 12:29] LABS: INR 1.07 (0.9-1.15); Prothrombin Time 11.3 sec (9.3-11.8)
[2025-02-05 12:30] LABS: BUN/Creatinine Ratio 8.1 (10.0-20.0); Blood Urea Nitrogen 7 mg/dL (9-23); Glucose 88 mg/dL (74-106)
[2025-02-05] MEDS ORDERED: PROPOFOL 10 MG/ML 20 ML IV ONE (12:35)
[2025-02-05] MEDS ORDERED: LIDOCAINE 2%HCL (LOCAL ANESTH.) INJ 20ML MDV ONE (12:35)
--- NOTE | 2025-02-05 13:21 | DVHOP2 ---
Operative Report DATE OF OPERATION: 02/05/25 PROCEDURE: Upper Endoscopy with biopsy. PREOPERATIVE INDICATION: The patient is a 39 -year-old male undergoing endoscopy for abnormal finding GI tract imaging POSTOPERATIVE DIAGNOSES: 1. 1-2 cm sliding-type hiatal hernia with severe grade C erosive esophagitis with esophageal ulcers extending into the distal 12 cm of the esophagus from which biopsies were obtained 2. Moderate gastritis with hyperemia erythema and flecks of blood 3. Kksjtiyc-cy-[id number] duodenitis with multiple small duodenal ulcers otherwise normal examination up to the 2nd and 3rd part of the duodenum PROCEDURE PERFORMED BY: Elizabeth Stratton GI NURSE: Jean Claude SCOPE: Olympus videoendoscope. ASA CLASS: 3 PREOPERATIVE MEDICATIONS: Mac sedation, Florencio Manning PROCEDURE IN DETAIL: After obtaining an informed consent, the patient was placed on left lateral decubitus position. The patient was then sedated with the above medications. A bite block was placed between his teeth. The endoscope was then passed through the oropharynx, into the esophagus, and through the stomach and pylorus up to the second and third part of the duodenum. The endoscope was then withdrawn. Duodenal biopsies were obtained Second and 3rd part of the duodenum were normal but the duodenal bulb and postbulbar area showed moderate duodenitis with small tiny duodenal ulcers The pre-pyloric area antrum and body showed moderate gastritis with flecks of old blood hyperemia erythema and pre-pyloric erosions On Retroflexion the fundus cardia and angularis were normal. Gastric biopsies were obtained. The endoscope was then withdrawn into distal esophagus Patient had a 1-2 cm sliding-type hiatal hernia with severe grade C erosive esophagitis with esophageal ulcers circumferential linear extending into the distal 10-12 cm of the esophagus Esophageal biopsies were obtained. The remaining proximal esophagus and oropharynx were unremarkable. The patient tolerated the procedure well without difficulty. COMPLICATIONS : None SPECIMENS: Duodenal Biopsies Gastric biopsies Esophageal biopsies DISPOSITION: Transfer back to the floor Stable PLAN: 1. Await for biopsy result 2. Will place pt on Protonix 40 mg bid IV 3. Carafate suspension 1 g p.o. 4 times a day 4. DC aspirin NSAIDs smoking alcohol 5. Full liquid diet advance as tolerated ELIZABETH STRATTON MD Feb 05, 2025 13:21
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
[2025-02-05] MEDS: PANTOPRAZOLE 40 MG/10 ML VIAL INJ IV SCH (15:17)
--- NOTE | 2025-02-05 16:32 | DVHPN2 ---
Subjective Patient is complaining of epigastric pain currently going for EGD. Reviewed: Care Plan Changes from previous H/P or p: No Changes Eyes: No Pain, No Vision change, No Conjunctivae inflammation, No Eyelid inflammation, No Other, No Redness ENT: No Ear pain, No Ear discharge, No Nose pain, No Nose discharge, No Nose congestion, No Mouth pain, No Mouth swelling, No Throat pain, No Throat swelling, No Other Cardiovascular: No Chest Pain, No Palpitations, No Orthopnea, No Paroxysmal Noc. Dyspnea, No Edema, No Lt Headedness, No Other Respiratory: No Cough, No Dry, No Shortness of breath, No SOB with excertion, No Wheezing, No Hemoptysis, No Pleuritic Pain, No Sputum, No Other Gastrointestinal: Nausea, Vomiting, Abdominal Pain, Diarrhea; No Constipation, No Melena, No Hematochezia, No Other Genitourinary: No Dysuria, No Frequency, No Incontinence, No Hematuria, No Retention, No Other Musculoskeletal: No other, No neck pain, No shoulder pain, No arm pain, No back pain, No hand pain, No leg pain, No foot pain Skin: No Rash, No Lesions, No Jaundice, No Bruising, No Other Objective Vitals Vital Signs Date Time Temp Pulse Resp B/P (MAP) Pulse Ox O2 Delivery O2 Flow Rate FiO2 02/05/25 13:30 98.0 75 18 120/75 (90) 92 98.0 02/05/25 12:52 Mask 5.0 02/05/25 12:52 97 Intake/Output Intake and Output 02/05/25 07:00 Intake Total 350 ml Output Total 0 ml Balance 350 ml Intake Oral 0 ml IV Total 350 ml Output Urine Total 0 ml Exam HEENT pupils are reactive Neck is supple CV is S1-S2 regular rate and rhythm Respiratory diminished breath sounds bases GI positive bowel sounds soft nondistended nontender no guarding no rigidity Extremity no edema [employer]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 Medications Current Medications Medications Dose Ordered Sig/Nicolas Route Start Time Stop Time Status Last Admin Dose Admin Sodium Chloride 1,000 ml @ 120 mls/hr Q8H20M IV 02/03/25 16:45 02/04/25 17:15 120 MLS/HR Acetaminophen/ Hydrocodone Bitart 1 tab Q4HP PRN PO 02/03/25 16:45 Ondansetron HCl 4 mg Q4HP PRN IV 02/03/25 16:45 Acetaminophen 650 mg Q6HP PRN PO 02/03/25 16:45 Morphine Sulfate 2 mg Q4HPRN PRN IV 02/03/25 16:45 02/04/25 23:32 2 MG Nitroglycerin 0.4 mg Q5MINP PRN SL 02/03/25 16:45 Morphine Sulfate 2 mg Q30M PRN IV 02/03/25 16:45 Piperacillin Sod/ Tazobactam Sod 100 ml @ 25 mls/hr Q6HR IV 02/04/25 00:00 02/05/25 11:32 25 MLS/HR Sucralfate 1 gm QID@0600,1130,1700,2200 PO 02/05/25 17:00 Pantoprazole Sodium 80 mg BID IV 02/05/25 13:58 02/05/25 15:17 80 MG Laboratory Results Laboratory Tests 02/05/25 11:58 Chemistry Test 02/05/25 11:58 Calcium Level 9.7 mg/dL (8.7-10.4) Coagulation Test 02/05/25 11:58 Prothrombin Time 11.3 sec (9.3-11.8) Prothrombin Time INR 1.07 (0.9-1.15) Microbiology Microbiology Date/Time Source Procedure Growth Status 02/03/25 15:12 Blood Blood Culture - Preliminary NO GROWTH AFTER 48 HOURS OF INCUBATION. Resulted Assessment/Plan Assessment/Plan 39-year-old male with a known history of depression, schizophrenia, chronic marijuana use, chronic tobacco use disorder initially presented to hospital with a abdominal pain worsening for last three months found to have 1. Acute on chronic abdominal pain suspected colitis 2. Diarrhea rule out C diff 3. Leukocytosis likely reactive secondary to 1. 4. Suicidal ideas and intent, continue one-to-one sitter tele psych 5. Previous history of depression and schizophrenia, currently still suicidal -patient's tele psych recommendation, patient is currently on-5150, one-to-one sitter -start Seroquel 200 mg q.h.s. and Trintellix 10 mg p.o. daily- -continue antibiotics, follow up with GI, discharge plan to inpatient psych facility once cleared by GI. Plan discussed with: Patient My Orders Orders - LEVY VILLALTA MD Procedure Category Date Status Time Quetiapine Fumarate PHA 02/05/25 Transmitted Tablet (Seroquel Tab 22:00 (Nf) Vortioxetine PHA 02/06/25 Transmitted Hydrobromide (Trintell 10:00 Date of Service: Feb 05, 2025 Billing Provider: LEVY VILLALTA MD Common Visit Codes: NOT BILLABLE LEVY VILLALTA MD Feb 05, 2025 16:32
[2025-02-05] MEDS: SUCRALFATE 1 GM/10 ML ORAL SUSP PO SCH (17:45)
[2025-02-05 20:45] LABS: Cannabinoid Screen, Urine Pos (NEGATIVE)
[2025-02-05 21:07] LABS: Amphetamine Screen, Urine Neg (NEGATIVE); Barbiturate Scree,Urine Neg (NEGATIVE); Benzodiazephine Screen, Urine Neg (NEGATIVE); Cocaine Screen, Urine Neg (NEGATIVE); Opiate Scree,Urine Neg (NEGATIVE); Phencyclidine Screen, Urine Neg (NEGATIVE)
[2025-02-06] VITALS (7 sets, daily range): BP systolic 88–119; BP diastolic 49–81; PULSE 58–70; RESP 17–20; TEMP 97.1–98.7; O2SAT 93–95
--- NOTE | 2025-02-06 10:00 | DVHPN2 ---
Progress Note - Dictate Date Seen: Feb 06, 2025 Medical Necessity Reason Pt with a Central, PICC or Fol: No Subjective No new complaints Pt sleeping all day No abd pain Psych consult noted vital signs Vital Sign Date Time Temp Pulse Resp B/P (MAP) Pulse Ox O2 Delivery O2 Flow Rate FiO2 02/06/25 08:10 Room Air* 0 21 02/06/25 04:40 97.1 67 20 119/72 (88) 95 97.1 Total Intake and Output 02/05/25 02/05/25 02/06/25 15:00 23:00 07:00 Intake Total 50 ml 1090 ml 500 ml Output Total 0 ml Balance 50 ml 1090 ml 500 ml medications Current Medications Medications Dose Ordered Sig/Nicolas Route Start Time Stop Time Status Last Admin Dose Admin Sodium Chloride 1,000 ml @ 120 mls/hr Q8H20M IV 02/03/25 16:45 02/06/25 05:54 120 MLS/HR Acetaminophen/ Hydrocodone Bitart 1 tab Q4HP PRN PO 02/03/25 16:45 Ondansetron HCl 4 mg Q4HP PRN IV 02/03/25 16:45 Acetaminophen 650 mg Q6HP PRN PO 02/03/25 16:45 Morphine Sulfate 2 mg Q4HPRN PRN IV 02/03/25 16:45 02/04/25 23:32 2 MG Nitroglycerin 0.4 mg Q5MINP PRN SL 02/03/25 16:45 Morphine Sulfate 2 mg Q30M PRN IV 02/03/25 16:45 Piperacillin Sod/ Tazobactam Sod 100 ml @ 25 mls/hr Q6HR IV 02/04/25 00:00 02/06/25 05:54 25 MLS/HR Sucralfate 1 gm QID@0600,1130,1700,2200 PO 02/05/25 17:00 02/06/25 06:02 1 GM Pantoprazole Sodium 80 mg BID IV 02/05/25 13:58 02/05/25 21:04 80 MG Quetiapine Fumarate 200 mg HS PO 02/05/25 22:00 02/05/25 21:04 200 MG Patient Own Medication 10 mg DAILY PO 02/06/25 10:00 objective General: NAD, AAOX3 Chest: lung reddy clear to auscultation Heart: RRR, no murmur Abdomen: non-distended, no tenderness to palpation, +BS laboratory and microbiology Laboratory Tests 02/05/25 11:58 Test 02/05/25 11:58 Range/Units Serum Glucose 88 74-106 mg/dL Problems(with codes): (1) Gastroduodenitis (2) Hiatal hernia with gastroesophageal reflux disease and esophagitis (3) Acute abdominal pain Prognosis Plan Advance diet as tolerated Protonix 80 mg IV q.12 hours Carafate suspension 1 g p.o. 4 times a day DC aspirin NSAIDs smoking alcohol Plan discussed with: Other (Nurse) ELIZABETH COHEN MD Feb 06, 2025 10:00
--- NOTE | 2025-02-06 13:37 | DVHDS2 ---
Discharge Summary Date of Admission Feb 03, 2025 at 16:45 Date of Discharge: Feb 06, 2025 Labs/Diagnostic Data: Laboratory Results Test 02/05/25 20:15 02/05/25 11:58 02/04/25 04:15 02/03/25 13:05 Urine Opiates Screen Neg (NEGATIVE) Urine Fentanyl Screen Neg (NEGATIVE) Urine Barbiturates Screen Neg (NEGATIVE) Urine Phencyclidine Screen Neg (NEGATIVE) Urine Amphetamines Screen Neg (NEGATIVE) Urine Benzodiazepines Screen Neg (NEGATIVE) Urine Cocaine Screen Neg (NEGATIVE) Urine Cannabinoids Screen Pos (NEGATIVE) White Blood Count 8.1 10^3/uL (4.4-10.8) Red Blood Count 4.67 10^6/uL (4.5-5.90) Hemoglobin 15.4 g/dL (13.5-17.5) Hematocrit 43.6 % (41.0-53.0) Mean Corpuscular Volume 93.5 fL (80.0-100.0) Mean Corpuscular Hemoglobin 33.0 pg (28.0-32.0) Mean Corpuscular Hemoglobin Concent 35.3 g/dL (32.0-36.0) Red Cell Distribution Width 12.4 % (11.8-14.3) Platelet Count 170 10^3/uL (140-450) Mean Platelet Volume 9.7 fL (6.9-10.8) Neutrophils (%) (Auto) 68.6 % (37.0-80.0) Lymphocytes (%) (Auto) 20.1 % (10.0-50.0) Monocytes (%) (Auto) 10.1 % (0.0-12.0) Eosinophils (%) (Auto) 0.7 % (0.0-7.0) Basophils (%) (Auto) 0.5 % (0.0-2.0) Neutrophils # (Auto) 5.5 10 ^3/uL (1.6-8.6) Lymphocytes # (Auto) 1.6 10 ^3/uL (0.4-5.4) Monocytes # (Auto) 0.8 10 ^3/uL (0-1.3) Eosinophils # (Auto) 0.1 10 ^3/uL (0-0.8) Basophils # (Auto) 0 10 ^3/uL (0-0.2) Nucleated Red Blood Cells 0.1 % Prothrombin Time 11.3 sec (9.3-11.8) Prothrombin Time INR 1.07 (0.9-1.15) Sodium Level 142 mmol/L (136-145) Potassium Level 4.2 mmol/L (3.5-5.1) Chloride Level 103 mmol/L (98-107) Carbon Dioxide Level 33 mmol/L (20-31) Anion Gap 6 (5-15) Blood Urea Nitrogen 7 mg/dL (9-23) Creatinine 0.86 mg/dL (0.700-1.30) Glomerular Filtration Rate Calc 114 mL/min (>90) BUN/Creatinine Ratio 8.1 (10.0-20.0) Serum Glucose 88 mg/dL (74-106) Calcium Level 9.7 mg/dL (8.7-10.4) Lactic Acid Level 1.0 mmol/L (0.4-2.0) Total Bilirubin 0.7 mg/dL (0.2-1.0) Aspartate Amino Transferase (AST) 24 U/L (<34) Alanine Aminotransferase (ALT) 17 U/L (7-40) Alkaline Phosphatase 66 U/L (46-116) Total Protein 6.7 g/dL (5.7-8.2) Albumin 4.5 g/dL (3.2-4.8) Differential Total Cells Counted 100.0 (100) Neutrophils % (Manual) 86 (37.0-80.0) Band Neutrophils % (Manual) 2 Lymphocytes % (Manual) 10 (10.0-50.0) Monocytes % (Manual) 2 (0-12) Eosinophils % (Manual) 0 (0-7) Basophils % (Manual) 0 (0.0-2.0) Metamyelocytes % (manual) 0 Myelocytes % (Manual) 0 Promyelocytes % (Manual) 0 Blast Cells % (Manual) 0 Reactive Lymphocytes 0 Platelet Estimate Adequate Other Laboratory Tests 02/05/25 11:58 Brief Hx & Hospital Course: 39-year-old male with a known history of depression, schizophrenia, chronic marijuana use, chronic tobacco use disorder initially presented to hospital with a abdominal pain worsening for last three months found to have acute on chronic abdominal pain secondary to colitis. Patient was started on IV antibiotics. CT abdomen and pelvis was done which shows evidence of thickening of the distal esophagus, stomach has been as evidence of colitis. Patient was seen by GI underwent EGD shows evidence of grade C esophagitis, esophageal ulcers, gastritis with hyperemia, duodenitis with a duodenal ulcers in 2nd and 3rd part of duodenum status post biopsy which is currently pending at the time of discharge. Patient was to be given p.o. antibiotics. Patient does have a suicidal ideation and recent suicide attempt eventually tele psych was consulted patient was placed on 5150 and was started on psych medication as prescribed. Patient is medically cleared to be transferred to acute care facility inpatient. Upon discharge from the psych facility patient needs to follow up with the GI to follow up on the gastric biopsy to make sure there is no underlying malignancy or any other pathology as biopsy report is still pending at the time of transfer to inpatient psych facility. Condition at Discharge: Stable Final Diagnosis/Problems List 39-year-old male with a known history of depression, schizophrenia, chronic marijuana use, chronic tobacco use disorder initially presented to hospital with a abdominal pain worsening for last three months found to have 1. Acute on chronic abdominal pain suspected colitis 2. Diarrhea rule out C diff 3. Leukocytosis likely reactive secondary to 1. 4. Suicidal ideas and intent, continue one-to-one sitter tele psych 5. Previous history of depression and schizophrenia, currently still suicidal Discharge Disposition: Acute Care Facility SNF Discharge Will this Physician continue t: No Discharge Instruct/Medications Diet: Cardiac 2g Na,low cholest Activity: See Comment Activity comment: As tolerated Follow Up/Referral: Follow up with the inpatient psychiatric facility Follow up with GI in 1-2 weeks to follow up on the gastric biopsy. Medications: As prescribed and reconciled Discharge Statement: "Patient was advised to return to the ER or call 911 if any headaches, dizziness, shortness of breath, chest pain, abdominal pain, bleeding, fevers, or worsening of medical condition. Patient was counseled about treatment plan, medications, possible side effects, patientverbalized understanding. All questions were answered to the best of my ability. This discharge took greater then 30 minutes in planning, reviewing documentation, counseling the patient, and discussing with other team members." ASSESSMENT ASSESSMENT Assessment 39-year-old male with a known history of depression, schizophrenia, chronic marijuana use, chronic tobacco use disorder initially presented to hospital with a abdominal pain worsening for last three months found to have 1. Acute on chronic abdominal pain suspected colitis 2. Diarrhea rule out C diff 3. Leukocytosis likely reactive secondary to 1. 4. Suicidal ideas and intent, continue one-to-one sitter tele psych 5. Previous history of depression and schizophrenia, currently still suicidal Date of Service: Feb 06, 2025 Billing Provider: LEVY VILLALTA MD Common Visit Codes: NOT BILLABLE LEVY VILLALTA MD Feb 06, 2025 13:37
[2025-02-06] MEDS: PANTOPRAZOLE 40 MG TAB PO SCH (16:20)
[2025-02-07] VITALS (8 sets, daily range): BP systolic 97–126; BP diastolic 53–87; PULSE 54–82; RESP 16–18; TEMP 97.7–98.4; O2SAT 92–97
--- NOTE | 2025-02-07 14:54 | DVHPN2 ---
Progress Note - Dictate Date Seen: Feb 07, 2025 Medical Necessity Reason Pt with a Central, PICC or Fol: No Subjective Comfortable in bed failure no complaints. Sitter at bedside. Feels better. vital signs Vital Sign Date Time Temp Pulse Resp B/P (MAP) Pulse Ox O2 Delivery O2 Flow Rate FiO2 02/07/25 13:00 97.7 66 18 126/85 (99) 94 97.7 02/07/25 08:00 Room Air* 0 21 Total Intake and Output 02/06/25 02/06/25 02/07/25 15:00 23:00 07:00 Intake Total 100 ml 1860 ml 350 ml Balance 100 ml 1860 ml 350 ml medications Current Medications Medications Dose Ordered Sig/Nicolas Route Start Time Stop Time Status Last Admin Dose Admin Acetaminophen/ Hydrocodone Bitart 1 tab Q4HP PRN PO 02/03/25 16:45 Ondansetron HCl 4 mg Q4HP PRN IV 02/03/25 16:45 Acetaminophen 650 mg Q6HP PRN PO 02/03/25 16:45 Morphine Sulfate 2 mg Q4HPRN PRN IV 02/03/25 16:45 02/04/25 23:32 2 MG Nitroglycerin 0.4 mg Q5MINP PRN SL 02/03/25 16:45 Morphine Sulfate 2 mg Q30M PRN IV 02/03/25 16:45 Sucralfate 1 gm QID@0600,1130,1700,2200 PO 02/05/25 17:00 02/07/25 11:10 1 GM Quetiapine Fumarate 200 mg HS PO 02/05/25 22:00 02/06/25 21:09 200 MG Patient Own Medication 10 mg DAILY PO 02/06/25 10:00 Pantoprazole Sodium 40 mg BID@0600,1700 PO 02/06/25 17:00 02/07/25 06:21 40 MG objective Alert awake oriented x3. Abdomen soft nontender positive bowel sounds. laboratory and microbiology Laboratory Tests 02/05/25 11:58 Test 02/05/25 11:58 Range/Units Serum Glucose 88 74-106 mg/dL Assessment/Plan Clinically feeling better. No abdominal pain. Who will advance his diet to soft diet today. History of the IV fluids. Follow up with the routine labs for tomorrow. We will have a tele psych re-evaluation to see if he is still needs to be 5150 hold. Meantime continue sitter at bedside. Medically stable to be transferred to psychiatric unit for further treatment. Discussed with Nurse and patient and nurse regarding care plan. Problems(with codes): (1) Suicidal ideation (2) Nonspecific colitis (3) Gastroduodenitis (4) Hiatal hernia with gastroesophageal reflux disease and esophagitis Dietary Evaluation Review Comments: continue current POC Expected Outcomes/Goals: To meet >75% estimated needs Fu 5-7 days Plan discussed with: Other DANA SNYDER MD Feb 07, 2025 14:54
--- NOTE | 2025-02-07 15:46 | DVHINCON2 ---
Date of Service if different f: Feb 07, 2025 Time of Service: 15:35 Consultation ([place]) Labs Laboratory Tests Test 02/03/25 13:05 02/04/25 04:15 02/05/25 11:58 02/05/25 20:15 Differential Total Cells Counted 100.0 (100) Neutrophils % (Manual) 86 (37.0-80.0) Band Neutrophils % (Manual) 2 Lymphocytes % (Manual) 10 (10.0-50.0) Monocytes % (Manual) 2 (0-12) Eosinophils % (Manual) 0 (0-7) Basophils % (Manual) 0 (0.0-2.0) Metamyelocytes % (manual) 0 Myelocytes % (Manual) 0 Promyelocytes % (Manual) 0 Blast Cells % (Manual) 0 Reactive Lymphocytes 0 Platelet Estimate Adequate Lactic Acid Level 1.0 mmol/L (0.4-2.0) Total Bilirubin 0.7 mg/dL (0.2-1.0) Aspartate Amino Transf (AST/SGOT) 24 U/L (<34) Alanine Aminotransferase (ALT/SGPT) 17 U/L (7-40) Alkaline Phosphatase 66 U/L (46-116) Total Protein 6.7 g/dL (5.7-8.2) Albumin 4.5 g/dL (3.2-4.8) White Blood Count 8.1 10^3/uL (4.4-10.8) Red Blood Count 4.67 10^6/uL (4.5-5.90) Hemoglobin 15.4 g/dL (13.5-17.5) Hematocrit 43.6 % (41.0-53.0) Mean Corpuscular Volume 93.5 fL (80.0-100.0) Mean Corpuscular Hemoglobin 33.0 pg (28.0-32.0) Mean Corpuscular Hemoglobin Concent 35.3 g/dL (32.0-36.0) Red Cell Distribution Width 12.4 % (11.8-14.3) Platelet Count 170 10^3/uL (140-450) Mean Platelet Volume 9.7 fL (6.9-10.8) Neutrophils (%) (Auto) 68.6 % (37.0-80.0) Lymphocytes (%) (Auto) 20.1 % (10.0-50.0) Monocytes (%) (Auto) 10.1 % (0.0-12.0) Eosinophils (%) (Auto) 0.7 % (0.0-7.0) Basophils (%) (Auto) 0.5 % (0.0-2.0) Neutrophils # (Auto) 5.5 10 ^3/uL (1.6-8.6) Lymphocytes # (Auto) 1.6 10 ^3/uL (0.4-5.4) Monocytes # (Auto) 0.8 10 ^3/uL (0-1.3) Eosinophils # (Auto) 0.1 10 ^3/uL (0-0.8) Basophils # (Auto) 0 10 ^3/uL (0-0.2) Nucleated Red Blood Cells 0.1 % Prothrombin Time 11.3 sec (9.3-11.8) Prothromb Time International Ratio 1.07 (0.9-1.15) Sodium Level 142 mmol/L (136-145) Potassium Level 4.2 mmol/L (3.5-5.1) Chloride Level 103 mmol/L (98-107) Carbon Dioxide Level 33 mmol/L (20-31) Anion Gap 6 (5-15) Blood Urea Nitrogen 7 mg/dL (9-23) Creatinine 0.86 mg/dL (0.700-1.30) Glomerular Filtration Rate Calc 114 mL/min (>90) BUN/Creatinine Ratio 8.1 (10.0-20.0) Serum Glucose 88 mg/dL (74-106) Calcium Level 9.7 mg/dL (8.7-10.4) Urine Opiates Screen Neg (NEGATIVE) Urine Fentanyl Screen Neg (NEGATIVE) Urine Barbiturates Screen Neg (NEGATIVE) Urine Phencyclidine Screen Neg (NEGATIVE) Urine Amphetamines Screen Neg (NEGATIVE) Urine Benzodiazepines Screen Neg (NEGATIVE) Urine Cocaine Screen Neg (NEGATIVE) Urine Cannabinoids Screen Pos (NEGATIVE) Microbiology Date/Time Source Procedure Growth Status 02/03/25 15:12 Blood Blood Culture - Preliminary NO GROWTH AFTER 72 HOURS OF INCUBATION. Resulted Appetite: Fair Thought content: WNL Orientation: Person, Place, Time, Situation Vitals Vital Signs Date Time Temp Pulse Resp B/P (MAP) Pulse Ox O2 Delivery O2 Flow Rate FiO2 02/07/25 13:00 97.7 66 18 126/85 (99) 94 97.7 02/07/25 08:00 Room Air* 0 21 Current medications Current Medications Medications Dose Ordered Sig/Nicolas Route Start Time Stop Time Status Last Admin Dose Admin Acetaminophen/ Hydrocodone Bitart 1 tab Q4HP PRN PO 02/03/25 16:45 Ondansetron HCl 4 mg Q4HP PRN IV 02/03/25 16:45 Acetaminophen 650 mg Q6HP PRN PO 02/03/25 16:45 Morphine Sulfate 2 mg Q4HPRN PRN IV 02/03/25 16:45 02/04/25 23:32 2 MG Nitroglycerin 0.4 mg Q5MINP PRN SL 02/03/25 16:45 Morphine Sulfate 2 mg Q30M PRN IV 02/03/25 16:45 Sucralfate 1 gm QID@0600,1130,1700,2200 PO 02/05/25 17:00 02/07/25 11:10 1 GM Quetiapine Fumarate 200 mg HS PO 02/05/25 22:00 02/06/25 21:09 200 MG Patient Own Medication 10 mg DAILY PO 02/06/25 10:00 Pantoprazole Sodium 40 mg BID@0600,1700 PO 02/06/25 17:00 02/07/25 06:21 40 MG Treatment plan discussed: With staff Medication adjusted: Yes PSYCHIATRY FOLLOW UP NOTE SUBJECTIVE: Pt gives his full name, location, date, and reason for presentation. Says he had a suicide attempt 2 days ago, says I just decided to do it. Says his family is being mean to him lately. He had been thinking about it a long time. Denies any drugs or alcohol use at that time. He reports a lot of prior episodes of suicide/self-harm. Denies access to firearms. When asked about ongoing SI, he s ays not yet. Pt lives with his aunt and 2 brothers. Says all three of them are mean to him, even though he pays all the bills. Pt denies any other support or friends. Pt does have an outpatient psychiatrist and therapist. He is on medications including Seroquel, Gabapentin, Trintellix. Pt say he has not drank for about a month ago. MENTAL STATUS EXAM: Fair appearing, fairly groomed, good eye contact. No abnormal or inappropriate behavior. Nl speech. Thought process goal directed. No disturbance in perc eptions. No SI now, but says he would hurt himself if had negative interactions with family, cannot contract for safety. Insight, judgement impaired. DIAGNOSIS Unspecified Depressive Disorder Adjustment Disorder with Disturbance of Mood and Behavior ASSESSMENT This is a 39yo M with history of multiple prior suicide attempts, who had intentional overdose on Benadryl just 3 days ago, cannot contract or safety if discharged. Pt continues to be moderate to high risk of suicide. He should be referred for psychiatric inpatient admission. RECOMMENDATIONS 1. LEGAL: Continue and/or re-initiate 5150 2. DISPOSITION: Refer for IP psychiatric admission. 3. MEDICATION: Continue home medications. ELIEL ALVAREZ MD Feb 07, 2025 15:46
--- NOTE | 2025-02-07 19:44 | DVHPN2 ---
Progress Note - Dictate Date Seen: Feb 07, 2025 Medical Necessity Reason Pt with a Central, PICC or Fol: No Subjective No new complaints; awake alert sitting up in bed Patient is tolerating a diet EGD findings reviewed with the patient regarding his chronic GERD and that he needs long-term maintenance with PPI vital signs Vital Sign Date Time Temp Pulse Resp B/P (MAP) Pulse Ox O2 Delivery O2 Flow Rate FiO2 02/07/25 17:00 98.0 61 18 122/81 (95) 94 98.0 02/07/25 08:00 Room Air* 0 21 Total Intake and Output 02/06/25 02/06/25 02/07/25 14:59 22:59 06:59 Intake Total 100 ml 1860 ml 350 ml Balance 100 ml 1860 ml 350 ml medications Current Medications Medications Dose Ordered Sig/Nicolas Route Start Time Stop Time Status Last Admin Dose Admin Acetaminophen/ Hydrocodone Bitart 1 tab Q4HP PRN PO 02/03/25 16:45 Ondansetron HCl 4 mg Q4HP PRN IV 02/03/25 16:45 Acetaminophen 650 mg Q6HP PRN PO 02/03/25 16:45 Morphine Sulfate 2 mg Q4HPRN PRN IV 02/03/25 16:45 02/04/25 23:32 2 MG Nitroglycerin 0.4 mg Q5MINP PRN SL 02/03/25 16:45 Morphine Sulfate 2 mg Q30M PRN IV 02/03/25 16:45 Sucralfate 1 gm QID@0600,1130,1700,2200 PO 02/05/25 17:00 02/07/25 16:10 1 GM Quetiapine Fumarate 200 mg HS PO 02/05/25 22:00 02/06/25 21:09 200 MG Patient Own Medication 10 mg DAILY PO 02/06/25 10:00 Pantoprazole Sodium 40 mg BID@0600,1700 PO 02/06/25 17:00 02/07/25 16:10 40 MG objective General: NAD, AAOX3 Chest: lung reddy clear to auscultation Heart: RRR, no murmur Abdomen: non-distended, no tenderness to palpation, +BS laboratory and microbiology Laboratory Tests 02/05/25 11:58 Test 02/05/25 11:58 Range/Units Serum Glucose 88 74-106 mg/dL Problems(with codes): (1) Hiatal hernia with gastroesophageal reflux disease and esophagitis (2) Gastroduodenitis (3) Suicidal ideation Prognosis Plan Protonix 40 mg p.o. twice a day Carafate 1 g p.o. twice a day Diet as tolerated Psych consult noted, patient is a 5150 hold awaiting inpatient transfer to psych facility Dietary Evaluation Review Comments: continue current POC Expected Outcomes/Goals: To meet >75% estimated needs Fu 5-7 days Plan discussed with: Patient ELIZABETH COHEN MD Feb 07, 2025 19:44
[2025-02-08] VITALS (7 sets, daily range): BP systolic 98–115; BP diastolic 60–73; PULSE 60–93; RESP 16–20; TEMP 97.6–98.1; O2SAT 93–98
[2025-02-08 05:15] LABS: Hematocrit 44.6 % (41.0-53.0); Hemoglobin 15.9 g/dL (13.5-17.5); Mean Corpuscular Hemoglobin 32.6 pg (28.0-32.0); Mean Corpuscular Volume 91.3 fL (80.0-100.0); Nucleated Red Blood Cells % 0.2 %
[2025-02-08 05:36] LABS: Alanine Aminotransferase 16 U/L (7-40); Albumin 3.9 g/dL (3.2-4.8); Alkaline Phosphatase 47 U/L (46-116); Anion Gap 10 (5-15); BUN/Creatinine Ratio 7.5 (10.0-20.0); Bilirubin, Total 0.4 mg/dL (0.2-1.0); Calcium 9.1 mg/dL (8.7-10.4); Carbon Dioxide 28 mmol/L (20-31); Chloride 105 mmol/L (98-107); Glucose 104 mg/dL (74-106); Potassium 3.6 mmol/L (3.5-5.1); Sodium 143 mmol/L (136-145); Total Protein 5.8 g/dL (5.7-8.2)
[2025-02-08 05:38] LABS: Blood Urea Nitrogen 6 mg/dL (9-23)
[2025-02-08] MEDS: ONDANSETRON HCL 4 MG/2 ML VIAL IV PRN (09:06)
[2025-02-08] MEDS: HYDROcodone-ACET 5/325MG TAB PO PRN (12:26)
--- NOTE | 2025-02-08 13:19 | DVHPN2 ---
Progress Note - Dictate Date Seen: Feb 08, 2025 Medical Necessity Reason Pt with a Central, PICC or Fol: No Subjective Patient had a repeat tele psych eval yesterday and still recommending 5150 hold. Meantime sitter at bedside. No complains of abdominal discomfort or pain. vital signs Vital Sign Date Time Temp Pulse Resp B/P (MAP) Pulse Ox O2 Delivery O2 Flow Rate FiO2 02/08/25 09:02 98.1 75 17 110/64 (79) 96 98.1 02/08/25 08:18 Room Air* 0 21 Total Intake and Output 02/07/25 02/07/25 02/08/25 15:00 23:00 07:00 Intake Total 1276 ml 450 ml 600 ml Balance 1276 ml 450 ml 600 ml medications Current Medications Medications Dose Ordered Sig/Nicolas Route Start Time Stop Time Status Last Admin Dose Admin Acetaminophen/ Hydrocodone Bitart 1 tab Q4HP PRN PO 02/03/25 16:45 02/08/25 12:26 1 TAB Ondansetron HCl 4 mg Q4HP PRN IV 02/03/25 16:45 02/08/25 09:06 4 MG Acetaminophen 650 mg Q6HP PRN PO 02/03/25 16:45 Morphine Sulfate 2 mg Q4HPRN PRN IV 02/03/25 16:45 02/04/25 23:32 2 MG Nitroglycerin 0.4 mg Q5MINP PRN SL 02/03/25 16:45 Morphine Sulfate 2 mg Q30M PRN IV 02/03/25 16:45 Sucralfate 1 gm QID@0600,1130,1700,2200 PO 02/05/25 17:00 02/08/25 11:02 1 GM Quetiapine Fumarate 200 mg HS PO 02/05/25 22:00 02/07/25 21:06 200 MG Patient Own Medication 10 mg DAILY PO 02/06/25 10:00 Pantoprazole Sodium 40 mg BID@0600,1700 PO 02/06/25 17:00 02/08/25 05:33 40 MG objective Alert awake oriented x3. Abdomen soft nontender positive bowel sounds. HEENT neck supple no JVD heart regular rate and rhythm S1-S2 lungs fair air movement without rales wheezes extremities positive pulses. laboratory and microbiology Laboratory Tests 02/08/25 04:34 Test 02/08/25 04:34 Range/Units Serum Glucose 104 74-106 mg/dL Assessment/Plan No changes to present management. Continue current medications and continue to look into transferred to inpatient psychiatric unit as recommended. Discussed with the nurse regarding care plan. Problems(with codes): (1) Suicidal ideation (2) Psychogenic nonepileptic seizure (3) Hiatal hernia with gastroesophageal reflux disease and esophagitis (4) Gastroduodenitis Dietary Evaluation Review Comments: continue current POC Expected Outcomes/Goals: To meet >75% estimated needs Fu 5-7 days Plan discussed with: Other DANA SNYDER MD Feb 08, 2025 13:19
[2025-02-09] VITALS (8 sets, daily range): BP systolic 93–125; BP diastolic 55–83; PULSE 59–91; RESP 17–20; TEMP 96.7–98.6; O2SAT 92–96
--- NOTE | 2025-02-09 14:23 | DVHPN2 ---
Progress Note - Dictate Date Seen: Feb 09, 2025 Medical Necessity Reason Pt with a Central, PICC or Fol: No Subjective Remains pleasant and comfortable in bed. Sitter at bedside. Waiting for transferred to inpatient psychiatric facility. Tolerating full liquid diet. vital signs Vital Sign Date Time Temp Pulse Resp B/P (MAP) Pulse Ox O2 Delivery O2 Flow Rate FiO2 02/09/25 12:55 98.6 91 19 99/67 (78) 96 98.6 02/09/25 08:06 Room Air* 0 21 Total Intake and Output 02/08/25 02/08/25 02/09/25 15:00 23:00 07:00 Intake Total 800 ml 1600 ml Balance 800 ml 1600 ml medications Current Medications Medications Dose Ordered Sig/Nicolas Route Start Time Stop Time Status Last Admin Dose Admin Acetaminophen/ Hydrocodone Bitart 1 tab Q4HP PRN PO 02/03/25 16:45 02/09/25 14:13 1 TAB Ondansetron HCl 4 mg Q4HP PRN IV 02/03/25 16:45 02/09/25 09:18 4 MG Acetaminophen 650 mg Q6HP PRN PO 02/03/25 16:45 Morphine Sulfate 2 mg Q4HPRN PRN IV 02/03/25 16:45 02/04/25 23:32 2 MG Nitroglycerin 0.4 mg Q5MINP PRN SL 02/03/25 16:45 Morphine Sulfate 2 mg Q30M PRN IV 02/03/25 16:45 Sucralfate 1 gm QID@0600,1130,1700,2200 PO 02/05/25 17:00 02/09/25 10:56 1 GM Quetiapine Fumarate 200 mg HS PO 02/05/25 22:00 02/08/25 21:58 200 MG Patient Own Medication 10 mg DAILY PO 02/06/25 10:00 Pantoprazole Sodium 40 mg BID@0600,1700 PO 02/06/25 17:00 02/09/25 05:50 40 MG objective Alert awake oriented x3. Abdomen soft nontender positive bowel sounds. HEENT neck supple no JVD heart regular rate and rhythm S1-S2 lungs fair air movement without rales wheezes extremities positive pulses. laboratory and microbiology Laboratory Tests 02/08/25 04:34 Test 02/08/25 04:34 Range/Units Serum Glucose 104 74-106 mg/dL Assessment/Plan No changes to present management. Continue current medications and continue to look into transferred to inpatient psychiatric unit as recommended. Discussed with the nurse regarding care plan. Problems(with codes): (1) Psychogenic nonepileptic seizure (2) Hiatal hernia with gastroesophageal reflux disease and esophagitis (3) Gastroduodenitis (4) Suicidal ideation Dietary Evaluation Review Comments: continue current POC Expected Outcomes/Goals: To meet >75% estimated needs Fu 5-7 days Plan discussed with: Patient DANA SNYDER MD Feb 09, 2025 14:23
[2025-02-10] VITALS (8 sets, daily range): BP systolic 99–120; BP diastolic 59–76; PULSE 57–92; RESP 17–20; TEMP 98–98.4; O2SAT 93–96
--- NOTE | 2025-02-10 01:11 | DVHPN2 ---
Progress Note - Dictate Date Seen: Feb 10, 2025 Medical Necessity Reason Pt with a Central, PICC or Fol: No Subjective No new complaints; awake alert sitting up in bed Patient is tolerating a full liquid diet EGD findings reviewed with the patient regarding his chronic GERD and that he needs long-term maintenance with PPI Patient is afraid to advance diet as it may trigger more abdominal pain vital signs Vital Sign Date Time Temp Pulse Resp B/P (MAP) Pulse Ox O2 Delivery O2 Flow Rate FiO2 02/09/25 21:00 97.8 62 20 125/83 (97) 94 97.8 02/09/25 20:00 Room Air* 0 21 Total Intake and Output 02/09/25 02/09/25 02/10/25 15:00 23:00 07:00 Intake Total 2300 ml Balance 2300 ml medications Current Medications Medications Dose Ordered Sig/Nicolas Route Start Time Stop Time Status Last Admin Dose Admin Acetaminophen/ Hydrocodone Bitart 1 tab Q4HP PRN PO 02/03/25 16:45 02/09/25 21:37 1 TAB Ondansetron HCl 4 mg Q4HP PRN IV 02/03/25 16:45 02/09/25 09:18 4 MG Acetaminophen 650 mg Q6HP PRN PO 02/03/25 16:45 Morphine Sulfate 2 mg Q4HPRN PRN IV 02/03/25 16:45 02/04/25 23:32 2 MG Nitroglycerin 0.4 mg Q5MINP PRN SL 02/03/25 16:45 Morphine Sulfate 2 mg Q30M PRN IV 02/03/25 16:45 Sucralfate 1 gm QID@0600,1130,1700,2200 PO 02/05/25 17:00 02/09/25 21:31 1 GM Quetiapine Fumarate 200 mg HS PO 02/05/25 22:00 02/09/25 21:31 200 MG Patient Own Medication 10 mg DAILY PO 02/06/25 10:00 Pantoprazole Sodium 40 mg BID@0600,1700 PO 02/06/25 17:00 02/09/25 16:11 40 MG objective General: NAD, AAOX3 Chest: lung reddy clear to auscultation Heart: RRR, no murmur Abdomen: non-distended, no tenderness to palpation, +BS laboratory and microbiology Laboratory Tests 02/08/25 04:34 Test 02/08/25 04:34 Range/Units Serum Glucose 104 74-106 mg/dL Problems(with codes): (1) Psychogenic nonepileptic seizure (2) Hiatal hernia with gastroesophageal reflux disease and esophagitis (3) Gastroduodenitis (4) Suicidal ideation Prognosis Plan Patient was given reassurance Advance to pureed diet and then soft mechanical Continue Protonix 40 mg p.o. twice a day Carafate 1 g p.o. 4 times a day Lifestyle and dietary modifications for GERD Once stabilized patient will be transferred to inpatient psych facility, currently has a sitter at the bedside Dietary Evaluation Review Comments: continue current POC Expected Outcomes/Goals: To meet >75% estimated needs Fu 5-7 days Plan discussed with: Patient, Other (Nurse) ELIZABETH COHEN MD Feb 10, 2025 01:10
[2025-02-11] VITALS (8 sets, daily range): BP systolic 99–114; BP diastolic 62–80; PULSE 62–96; RESP 14–18; TEMP 97.6–98.3; O2SAT 90–97
--- NOTE | 2025-02-11 14:32 | DVHPN2 ---
Progress Note - Dictate Date Seen: Feb 11, 2025 Medical Necessity Reason Pt with a Central, PICC or Fol: No Subjective No new complaints; awake alert sitting up in bed Patient is tolerating a pureed diet and ate his breakfast and lunch EGD findings reviewed with the patient regarding his chronic GERD and that he needs long-term maintenance with PPI vital signs Vital Sign Date Time Temp Pulse Resp B/P (MAP) Pulse Ox O2 Delivery O2 Flow Rate FiO2 02/11/25 12:30 97.8 96 16 105/72 (83) 96 97.8 02/11/25 08:00 Room Air* 0 21 Total Intake and Output 02/10/25 02/10/25 02/11/25 15:00 23:00 07:00 Intake Total 1743 ml 0 ml Balance 1743 ml 0 ml medications Current Medications Medications Dose Ordered Sig/Nicolas Route Start Time Stop Time Status Last Admin Dose Admin Acetaminophen/ Hydrocodone Bitart 1 tab Q4HP PRN PO 02/03/25 16:45 02/11/25 11:06 1 TAB Ondansetron HCl 4 mg Q4HP PRN IV 02/03/25 16:45 02/09/25 09:18 4 MG Acetaminophen 650 mg Q6HP PRN PO 02/03/25 16:45 Morphine Sulfate 2 mg Q4HPRN PRN IV 02/03/25 16:45 02/04/25 23:32 2 MG Nitroglycerin 0.4 mg Q5MINP PRN SL 02/03/25 16:45 Morphine Sulfate 2 mg Q30M PRN IV 02/03/25 16:45 Sucralfate 1 gm QID@0600,1130,1700,2200 PO 02/05/25 17:00 02/11/25 11:06 1 GM Quetiapine Fumarate 200 mg HS PO 02/05/25 22:00 02/10/25 21:32 200 MG Patient Own Medication 10 mg DAILY PO 02/06/25 10:00 Pantoprazole Sodium 40 mg BID@0600,1700 PO 02/06/25 17:00 02/11/25 05:56 40 MG objective General: NAD, AAOX3 Chest: lung reddy clear to auscultation Heart: RRR, no murmur Abdomen: non-distended, no tenderness to palpation, +BS laboratory and microbiology Laboratory Tests 02/08/25 04:34 Test 02/08/25 04:34 Range/Units Serum Glucose 104 74-106 mg/dL Problems(with codes): (1) Psychogenic nonepileptic seizure (2) Hiatal hernia with gastroesophageal reflux disease and esophagitis (3) Gastroduodenitis (4) Nonspecific colitis (5) Suicidal ideation Prognosis Plan Patient appears to be stabilized from a GI point of view Patient needs to be maintained on Protonix and Carafate for now Discharge planning is in progress patient is awaiting a inpatient [facility] facility placement Dietary Evaluation Review Comments: continue current POC Expected Outcomes/Goals: To meet >75% estimated needs Fu 5-7 days Plan discussed with: Patient, Other (Nurse) ELIZABETH COHEN MD Feb 11, 2025 14:32
--- NOTE | 2025-02-11 16:06 | DVHPN2 ---
Progress Note - Dictate Date Seen: Feb 11, 2025 Medical Necessity Reason Pt with a Central, PICC or Fol: No Subjective 5150 form is filled for nurse today. Still pending bed availability at psych facility. vital signs Vital Sign Date Time Temp Pulse Resp B/P (MAP) Pulse Ox O2 Delivery O2 Flow Rate FiO2 02/11/25 12:30 97.8 96 16 105/72 (83) 96 97.8 02/11/25 08:00 Room Air* 0 21 Total Intake and Output 02/10/25 02/10/25 02/11/25 15:00 23:00 07:00 Intake Total 1743 ml 0 ml Balance 1743 ml 0 ml medications Current Medications Medications Dose Ordered Sig/Nicolas Route Start Time Stop Time Status Last Admin Dose Admin Acetaminophen/ Hydrocodone Bitart 1 tab Q4HP PRN PO 02/03/25 16:45 02/11/25 11:06 1 TAB Ondansetron HCl 4 mg Q4HP PRN IV 02/03/25 16:45 02/09/25 09:18 4 MG Acetaminophen 650 mg Q6HP PRN PO 02/03/25 16:45 Morphine Sulfate 2 mg Q4HPRN PRN IV 02/03/25 16:45 02/04/25 23:32 2 MG Nitroglycerin 0.4 mg Q5MINP PRN SL 02/03/25 16:45 Morphine Sulfate 2 mg Q30M PRN IV 02/03/25 16:45 Sucralfate 1 gm QID@0600,1130,1700,2200 PO 02/05/25 17:00 02/11/25 11:06 1 GM Quetiapine Fumarate 200 mg HS PO 02/05/25 22:00 02/10/25 21:32 200 MG Patient Own Medication 10 mg DAILY PO 02/06/25 10:00 Pantoprazole Sodium 40 mg BID@0600,1700 PO 02/06/25 17:00 02/11/25 05:56 40 MG objective Alert awake oriented x3. Abdomen soft nontender positive bowel sounds. HEENT neck supple no JVD heart regular rate and rhythm S1-S2 lungs fair air movement without rales wheezes extremities positive pulses. laboratory and microbiology Laboratory Tests 02/08/25 04:34 Test 02/08/25 04:34 Range/Units Serum Glucose 104 74-106 mg/dL Assessment/Plan Medically stable for discharge to psych facility. Continue current medications and continue to look into transferred to inpatient psychiatric unit as recommended. Discussed with the nurse regarding care plan. Problems(with codes): (1) Hiatal hernia with gastroesophageal reflux disease and esophagitis (2) Psychogenic nonepileptic seizure (3) Suicidal ideation Dietary Evaluation Review Comments: continue current POC Expected Outcomes/Goals: To meet >75% estimated needs Fu 5-7 days Plan discussed with: Other DANA SNYDER MD Feb 11, 2025 16:06
[2025-02-12] VITALS (8 sets, daily range): BP systolic 98–134; BP diastolic 61–92; PULSE 67–86; RESP 16–18; TEMP 97–98.2; O2SAT 93–97
[2025-02-13] VITALS (8 sets, daily range): BP systolic 102–129; BP diastolic 62–84; PULSE 66–82; RESP 17–20; TEMP 97.5–98; O2SAT 94–98
--- NOTE | 2025-02-13 15:11 | DVHPN2 ---
Progress Note - Dictate Date Seen: Feb 13, 2025 Medical Necessity Reason Pt with a Central, PICC or Fol: No Subjective Clinically remained stable. Tolerating pureed diet. Waiting for transfer to psych facility. However today patient says he is no longer suicidal. vital signs Vital Sign Date Time Temp Pulse Resp B/P (MAP) Pulse Ox O2 Delivery O2 Flow Rate FiO2 02/13/25 13:13 82 18 105/70 (82) 98 02/13/25 09:06 98.0 98.0 02/13/25 08:00 Room Air* 0 21 Total Intake and Output 02/12/25 02/12/25 02/13/25 15:00 23:00 07:00 Intake Total 530 ml 335 ml Balance 530 ml 335 ml medications Current Medications Medications Dose Ordered Sig/Nicolas Route Start Time Stop Time Status Last Admin Dose Admin Acetaminophen/ Hydrocodone Bitart 1 tab Q4HP PRN PO 02/03/25 16:45 02/13/25 10:49 1 TAB Ondansetron HCl 4 mg Q4HP PRN IV 02/03/25 16:45 02/09/25 09:18 4 MG Acetaminophen 650 mg Q6HP PRN PO 02/03/25 16:45 Morphine Sulfate 2 mg Q4HPRN PRN IV 02/03/25 16:45 02/04/25 23:32 2 MG Nitroglycerin 0.4 mg Q5MINP PRN SL 02/03/25 16:45 Morphine Sulfate 2 mg Q30M PRN IV 02/03/25 16:45 Sucralfate 1 gm QID@0600,1130,1700,2200 PO 02/05/25 17:00 02/13/25 10:49 1 GM Quetiapine Fumarate 200 mg HS PO 02/05/25 22:00 02/12/25 21:08 200 MG Patient Own Medication 10 mg DAILY PO 02/06/25 10:00 Pantoprazole Sodium 40 mg BID@0600,1700 PO 02/06/25 17:00 02/13/25 05:12 40 MG objective Alert awake oriented x3. Abdomen soft nontender positive bowel sounds. HEENT neck supple no JVD heart regular rate and rhythm S1-S2 lungs fair air movement without rales wheezes extremities positive pulses. laboratory and microbiology Laboratory Tests 02/08/25 04:34 Test 02/08/25 04:34 Range/Units Serum Glucose 104 74-106 mg/dL Assessment/Plan No psychiatric beds/facility is available for his transfer therefore he remains in the hospital. Given his improved mentation we will reconsulted tele psychiatry evaluation in the morning. If he is no longer suicidal patient possibly could be discharged home per psych recommendations. Otherwise continue to look into inpatient psych facilities for transfer. Discussed with the nurse regarding care plan. Problems(with codes): (1) Psychogenic nonepileptic seizure (2) Hiatal hernia with gastroesophageal reflux disease and esophagitis (3) Gastroduodenitis (4) Suicidal ideation Dietary Evaluation Review Comments: continue current POC Expected Outcomes/Goals: To meet >75% estimated needs Fu 5-7 days Plan discussed with: Patient, Other DANA SNYDER MD Feb 13, 2025 15:11
[2025-02-14] VITALS (8 sets, daily range): BP systolic 102–148; BP diastolic 58–88; PULSE 60–88; RESP 18–20; TEMP 97.5–98.6; O2SAT 95–98
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
--- NOTE | 2025-02-14 16:51 | DVHPN2 ---
Subjective Patient was cleared by tele psych to be discharged but no patient's became suicidal again. Reviewed: Care Plan Changes from previous H/P or p: Changes (Patient has stated that he is still suicidal.) Eyes: No Pain, No Vision change, No Conjunctivae inflammation, No Eyelid inflammation, No Other, No Redness ENT: No Ear pain, No Ear discharge, No Nose pain, No Nose discharge, No Nose congestion, No Mouth pain, No Mouth swelling, No Throat pain, No Throat swelling, No Other Cardiovascular: No Chest Pain, No Palpitations, No Orthopnea, No Paroxysmal Noc. Dyspnea, No Edema, No Lt Headedness, No Other Respiratory: No Cough, No Dry, No Shortness of breath, No SOB with excertion, No Wheezing, No Hemoptysis, No Pleuritic Pain, No Sputum, No Other Gastrointestinal: Nausea, Vomiting, Abdominal Pain, Diarrhea; No Constipation, No Melena, No Hematochezia, No Other Genitourinary: No Dysuria, No Frequency, No Incontinence, No Hematuria, No Retention, No Other Musculoskeletal: No other, No neck pain, No shoulder pain, No arm pain, No back pain, No hand pain, No leg pain, No foot pain Skin: No Rash, No Lesions, No Jaundice, No Bruising, No Other Objective Vitals Vital Signs Date Time Temp Pulse Resp B/P (MAP) Pulse Ox O2 Delivery O2 Flow Rate FiO2 02/14/25 12:43 98.1 88 20 113/75 (88) 96 98.1 02/14/25 08:00 Room Air* 0 21 Intake/Output Intake and Output 02/14/25 07:00 Intake Total 1620 ml Balance 1620 ml Intake Oral 1620 ml # Voids 5 # Bowel Movements 1 Exam HEENT pupils are reactive Neck is supple CV is S1-S2 regular rate and rhythm Respiratory diminished breath sounds bases GI positive bowel sounds soft nondistended nontender no guarding no rigidity Extremity no edema 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 Medications Current Medications Medications Dose Ordered Sig/Nicolas Route Start Time Stop Time Status Last Admin Dose Admin Acetaminophen/ Hydrocodone Bitart 1 tab Q4HP PRN PO 02/03/25 16:45 02/14/25 09:24 1 TAB Ondansetron HCl 4 mg Q4HP PRN IV 02/03/25 16:45 02/09/25 09:18 4 MG Acetaminophen 650 mg Q6HP PRN PO 02/03/25 16:45 Morphine Sulfate 2 mg Q4HPRN PRN IV 02/03/25 16:45 02/04/25 23:32 2 MG Nitroglycerin 0.4 mg Q5MINP PRN SL 02/03/25 16:45 Morphine Sulfate 2 mg Q30M PRN IV 02/03/25 16:45 Sucralfate 1 gm QID@0600,1130,1700,2200 PO 02/05/25 17:00 02/14/25 11:53 1 GM Quetiapine Fumarate 200 mg HS PO 02/05/25 22:00 02/13/25 21:15 200 MG Patient Own Medication 10 mg DAILY PO 02/06/25 10:00 02/14/25 09:13 10 MG Pantoprazole Sodium 40 mg BID@0600,1700 PO 02/06/25 17:00 02/14/25 05:31 40 MG Laboratory Results Laboratory Tests 02/08/25 04:34 Microbiology Microbiology Date/Time Source Procedure Growth Status 02/03/25 15:12 Blood Blood Culture - Final NO GROWTH AFTER 5 DAYS OF INCUBATION. Complete Assessment/Plan Assessment/Plan 39-year-old male with a known history of depression, schizophrenia, chronic marijuana use, chronic tobacco use disorder initially presented to hospital with a abdominal pain worsening for last three months found to have 1. Acute on chronic abdominal pain suspected colitis 2. Diarrhea ruled out C diff 3. Leukocytosis likely reactive secondary to 1. 4. Suicidal ideas and intent, continuous sitter, re-evaluation were tele psych 5. Previous history of depression and schizophrenia, currently still suicidal -patient was initially placed on 5150 and inpatient psych facility arrangement, later on patient was cleared by tele psych today morning but now patient says again that he can be suicidal. We will re-evaluate by tele psych Plan discussed with: Patient My Orders Orders - LEVY VILLALTA MD Procedure Category Date Status Time Soc Telemed Psych CONS 02/14/25 Transmitted Consult 15:18 Date of Service: Feb 14, 2025 Billing Provider: LEVY VILLALTA MD Common Visit Codes: NOT BILLABLE LEVY VILLALTA MD Feb 14, 2025 16:51
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
[2025-02-15] VITALS (7 sets, daily range): BP systolic 95–110; BP diastolic 57–74; PULSE 61–125; RESP 17–20; TEMP 97.4–98.2; O2SAT 92–97
--- NOTE | 2025-02-15 17:11 | DVHPN2 ---
Subjective Patient was cleared by tele psych to be discharged but no patient's became suicidal again. Reviewed: Care Plan Changes from previous H/P or p: No Changes Eyes: No Pain, No Vision change, No Conjunctivae inflammation, No Eyelid inflammation, No Other, No Redness ENT: No Ear pain, No Ear discharge, No Nose pain, No Nose discharge, No Nose congestion, No Mouth pain, No Mouth swelling, No Throat pain, No Throat swelling, No Other Cardiovascular: No Chest Pain, No Palpitations, No Orthopnea, No Paroxysmal Noc. Dyspnea, No Edema, No Lt Headedness, No Other Respiratory: No Cough, No Dry, No Shortness of breath, No SOB with excertion, No Wheezing, No Hemoptysis, No Pleuritic Pain, No Sputum, No Other Gastrointestinal: Nausea, Vomiting, Abdominal Pain, Diarrhea; No Constipation, No Melena, No Hematochezia, No Other Genitourinary: No Dysuria, No Frequency, No Incontinence, No Hematuria, No Retention, No Other Musculoskeletal: No other, No neck pain, No shoulder pain, No arm pain, No back pain, No hand pain, No leg pain, No foot pain Skin: No Rash, No Lesions, No Jaundice, No Bruising, No Other Objective Vitals Vital Signs Date Time Temp Pulse Resp B/P (MAP) Pulse Ox O2 Delivery O2 Flow Rate FiO2 02/15/25 16:32 97.9 105 18 102/57 (72) 97 97.9 02/15/25 08:00 Room Air* 0 21 Intake/Output Intake and Output 02/15/25 07:00 Intake Total 2994 ml Balance 2994 ml Intake Oral 2994 ml # Voids 6 Exam HEENT pupils are reactive Neck is supple CV is S1-S2 regular rate and rhythm Respiratory diminished breath sounds bases GI positive bowel sounds soft nondistended nontender no guarding no rigidity Extremity no edema 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 Medications Current Medications Medications Dose Ordered Sig/Nicolas Route Start Time Stop Time Status Last Admin Dose Admin Acetaminophen/ Hydrocodone Bitart 1 tab Q4HP PRN PO 02/03/25 16:45 02/15/25 15:08 1 TAB Ondansetron HCl 4 mg Q4HP PRN IV 02/03/25 16:45 02/09/25 09:18 4 MG Acetaminophen 650 mg Q6HP PRN PO 02/03/25 16:45 Morphine Sulfate 2 mg Q4HPRN PRN IV 02/03/25 16:45 02/04/25 23:32 2 MG Nitroglycerin 0.4 mg Q5MINP PRN SL 02/03/25 16:45 Morphine Sulfate 2 mg Q30M PRN IV 02/03/25 16:45 Sucralfate 1 gm QID@0600,1130,1700,2200 PO 02/05/25 17:00 02/15/25 16:46 1 GM Quetiapine Fumarate 200 mg HS PO 02/05/25 22:00 02/14/25 21:20 200 MG Patient Own Medication 10 mg DAILY PO 02/06/25 10:00 02/15/25 09:21 10 MG Pantoprazole Sodium 40 mg BID@0600,1700 PO 02/06/25 17:00 02/15/25 16:46 40 MG Laboratory Results Laboratory Tests 02/08/25 04:34 Microbiology Microbiology Date/Time Source Procedure Growth Status 02/03/25 15:12 Blood Blood Culture - Final NO GROWTH AFTER 5 DAYS OF INCUBATION. Complete Assessment/Plan Assessment/Plan 39-year-old male with a known history of depression, schizophrenia, chronic marijuana use, chronic tobacco use disorder initially presented to hospital with a abdominal pain worsening for last three months found to have 1. Acute on chronic abdominal pain suspected colitis 2. Diarrhea ruled out C diff 3. Leukocytosis likely reactive secondary to 1. 4. Suicidal ideas and intent, continuous sitter, re-evaluation were tele psych 5. Previous history of depression and schizophrenia, currently still suicidal -patient was initially placed on 5150 and inpatient psych facility arrangement, later on patient was cleared by tele psych today morning but now patient says again that he can be suicidal. We will re-evaluate by tele psych Plan discussed with: Patient My Orders Orders - LEVY VILLALTA MD Procedure Category Date Status Time * Electronic Integrated Systems Mechanic CONS 02/14/25 Transmitted Consult 18:20 Discharge DISCHARGE 02/15/25 Transmitted 13:35 Date of Service: Feb 15, 2025 Billing Provider: LEVY VILLALTA MD Common Visit Codes: NOT BILLABLE LEVY VILLALTA MD Feb 15, 2025 17:11
[2025-02-16 01:00] VITALS: BP 116/74; PULSE 96; RESP 18; O2SAT 92
[2025-02-16 05:00] VITALS: BP 104/62; PULSE 102; RESP 18; TEMP 98.1; O2SAT 92
[2025-02-16 08:00] VITALS: PULSE 87; PULSE 99; RESP 19; O2SAT 95
[2025-02-16] MEDS ORDERED: VORT10TA PO (17:25)
--- NOTE | 2025-02-16 17:26 | DVHPN2 ---
Subjective Patient was cleared by tele psych to be discharged but no patient's became suicidal again. Now patient is back on 5150 hold. Reviewed: Care Plan Changes from previous H/P or p: No Changes Eyes: No Pain, No Vision change, No Conjunctivae inflammation, No Eyelid inflammation, No Other, No Redness ENT: No Ear pain, No Ear discharge, No Nose pain, No Nose discharge, No Nose congestion, No Mouth pain, No Mouth swelling, No Throat pain, No Throat swelling, No Other Cardiovascular: No Chest Pain, No Palpitations, No Orthopnea, No Paroxysmal Noc. Dyspnea, No Edema, No Lt Headedness, No Other Respiratory: No Cough, No Dry, No Shortness of breath, No SOB with excertion, No Wheezing, No Hemoptysis, No Pleuritic Pain, No Sputum, No Other Gastrointestinal: Nausea, Vomiting, Abdominal Pain, Diarrhea; No Constipation, No Melena, No Hematochezia, No Other Genitourinary: No Dysuria, No Frequency, No Incontinence, No Hematuria, No Retention, No Other Musculoskeletal: No other, No neck pain, No shoulder pain, No arm pain, No back pain, No hand pain, No leg pain, No foot pain Skin: No Rash, No Lesions, No Jaundice, No Bruising, No Other Objective Vitals Vital Signs Date Time Temp Pulse Resp B/P (MAP) Pulse Ox O2 Delivery O2 Flow Rate FiO2 02/16/25 08:00 87 02/16/25 08:00 19 95 Room Air* 0 21 02/16/25 05:00 98.1 104/62 (76) 98.1 Intake/Output Intake and Output 02/16/25 07:00 Intake Total 1760 ml Balance 1760 ml Intake Oral 1760 ml # Voids 2 Exam HEENT pupils are reactive Neck is supple CV is S1-S2 regular rate and rhythm Respiratory diminished breath sounds bases GI positive bowel sounds soft nondistended nontender no guarding no rigidity 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 Medications Current Medications Medications Dose Ordered Sig/Nicolas Route Start Time Stop Time Status Last Admin Dose Admin Acetaminophen/ Hydrocodone Bitart 1 tab Q4HP PRN PO 02/03/25 16:45 02/16/25 17:18 1 TAB Ondansetron HCl 4 mg Q4HP PRN IV 02/03/25 16:45 02/09/25 09:18 4 MG Acetaminophen 650 mg Q6HP PRN PO 02/03/25 16:45 Morphine Sulfate 2 mg Q4HPRN PRN IV 02/03/25 16:45 02/04/25 23:32 2 MG Nitroglycerin 0.4 mg Q5MINP PRN SL 02/03/25 16:45 Morphine Sulfate 2 mg Q30M PRN IV 02/03/25 16:45 Sucralfate 1 gm QID@0600,1130,1700,2200 PO 02/05/25 17:00 02/16/25 17:17 1 GM Quetiapine Fumarate 200 mg HS PO 02/05/25 22:00 02/15/25 21:57 200 MG Pantoprazole Sodium 40 mg BID@0600,1700 PO 02/06/25 17:00 02/16/25 17:17 40 MG Patient Own Medication 10 mg DAILY PO 02/16/25 10:00 02/16/25 10:07 10 MG Laboratory Results Laboratory Tests 02/08/25 04:34 Microbiology Microbiology Date/Time Source Procedure Growth Status 02/03/25 15:12 Blood Blood Culture - Final NO GROWTH AFTER 5 DAYS OF INCUBATION. Complete Assessment/Plan Assessment/Plan 39-year-old male with a known history of depression, schizophrenia, chronic marijuana use, chronic tobacco use disorder initially presented to hospital with a abdominal pain worsening for last three months found to have 1. Acute on chronic abdominal pain suspected colitis 2. Diarrhea ruled out C diff 3. Leukocytosis likely reactive secondary to 1. 4. Suicidal ideas and intent, continuous sitter, re-evaluation were tele psych 5. Previous history of depression and schizophrenia, currently still suicidal -patient was initially placed on 5150 and inpatient psych facility arrangement, then later on patient was cleared but then again became suicidal, currently back on 5150, discharge plan to inpatient psych facility once bed is available. Plan discussed with: Patient My Orders Orders - LEVY VILLALTA MD Procedure Category Date Status Time (Nf) Vortioxetine PHA 02/16/25 In Process Hydrobromide (Trintell 10:00 Date of Service: Feb 16, 2025 Billing Provider: LEVY VILLALTA MD Common Visit Codes: NOT BILLABLE LEVY VILLALTA MD Feb 16, 2025 17:26
[2025-02-16 20:00] VITALS: PULSE 78
[2025-02-16 20:10] VITALS: PULSE 75; RESP 18
[2025-02-16 21:00] VITALS: BP 109/65; PULSE 88; RESP 18; TEMP 99.2; O2SAT 95
[2025-02-17] VITALS (8 sets, daily range): BP systolic 96–129; BP diastolic 63–77; PULSE 77–102; RESP 16–19; TEMP 97.5–98.6; O2SAT 92–98
--- NOTE | 2025-02-17 16:29 | TELE.CONS ---
02/17/251609 The patient was seen and evaluated at [facility] via telepsychiatry platform. 39 yr old male was admitted on 02/04 after an overdose on benadryl. He was seen by psychiatry and recommended for inpatient hospitalization but has been unable to be admitted. He is no longer on a 5150 hold and requested to go home. He reported that he sees a psychiatrist who he does video calls with and has his medication at home. He said he feels comfortable returning home. He lives with aunt and two brothers. He was diagnosed with schizophrenia, bipolar and takes trintellix 15 mg qhs, gabapentin 100mg daily, seroquel 200mg qhs for sleep, risperidal unsure of dose. He also noted his doctor started him on a new medication, but he is unsure of what it is. He said he has had suicidal ideation today. He said he has it occasionally and that if it occurs at home, he could ask one of his brothers or aunt for help. He also reported he could call 911 or [phone]. He denied having aud itory or visual hallucinations. He denied having homicidal ideation, plan or intent. MSE: Alert, oriented male sitting in chair cooperative and forthcoming speech-regular rate, rhythm Mood-"feeling better" Affect-euthymic congruent Tht process-linear and goal directed Tht Content- Denied having suicidal or homicidal ideation, plan or intent. denied [facility] Insight-fair Judgment-good Impulse control-intact Diagnosis: UNSPECIFIED DEPRESSIVE DISORDER F32.A; h/o schizophrenia Assessment: This 39 yr old male appears to suffer from depression and likely schizophrenia and is no longer suicidal. His hold has and he requested to be discharged and does not meet critieria for involuntary hold at this time. He would benefit from continuing on his medications and continuing in outpatient care. Plan: 1. The patient is psychologically cleared for discharge. 2. Legal-voluntary. Discontinue 1:1 sitter. 3. Medications- continue present outpatient regimen. Follow up with outpatient mental health for medication management and therapy. 4. Case discussed with SABINO Paulino. 5. Please contact psychiatry if further follow up or reevaluation is desired. Yes KENDY BUSH MD Feb 17, 2025 16:18
--- NOTE | 2025-02-17 19:23 | DVHPN2 ---
Subjective Patient will be re-evaluated by tele psych today. Reviewed: Care Plan Changes from previous H/P or p: No Changes Eyes: No Pain, No Vision change, No Conjunctivae inflammation, No Eyelid inflammation, No Other, No Redness ENT: No Ear pain, No Ear discharge, No Nose pain, No Nose discharge, No Nose congestion, No Mouth pain, No Mouth swelling, No Throat pain, No Throat swelling, No Other Cardiovascular: No Chest Pain, No Palpitations, No Orthopnea, No Paroxysmal Noc. Dyspnea, No Edema, No Lt Headedness, No Other Respiratory: No Cough, No Dry, No Shortness of breath, No SOB with excertion, No Wheezing, No Hemoptysis, No Pleuritic Pain, No Sputum, No Other Gastrointestinal: Nausea, Vomiting, Abdominal Pain, Diarrhea; No Constipation, No Melena, No Hematochezia, No Other Genitourinary: No Dysuria, No Frequency, No Incontinence, No Hematuria, No Retention, No Other Musculoskeletal: No other, No neck pain, No shoulder pain, No arm pain, No back pain, No hand pain, No leg pain, No foot pain Skin: No Rash, No Lesions, No Jaundice, No Bruising, No Other Objective Vitals Vital Signs Date Time Temp Pulse Resp B/P (MAP) Pulse Ox O2 Delivery O2 Flow Rate FiO2 02/17/25 16:57 97.8 77 16 116/77 (90) 98 97.8 02/17/25 08:00 Room Air* 0 21 Intake/Output Intake and Output 02/17/25 07:00 Intake Total 1700 ml Balance 1700 ml Intake Oral 1700 ml # Voids 1 Exam HEENT pupils are reactive Neck is supple CV is S1-S2 regular rate and rhythm Respiratory diminished breath sounds bases GI positive bowel sounds soft nondistended nontender no guarding no rigidity Extremity no edema 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 no motor deficit Medications Current Medications Medications Dose Ordered Sig/Nicolas Route Start Time Stop Time Status Last Admin Dose Admin Ondansetron HCl 4 mg Q4HP PRN IV 02/03/25 16:45 02/09/25 09:18 4 MG Acetaminophen 650 mg Q6HP PRN PO 02/03/25 16:45 Nitroglycerin 0.4 mg Q5MINP PRN SL 02/03/25 16:45 Sucralfate 1 gm QID@0600,1130,1700,2200 PO 02/05/25 17:00 02/17/25 17:18 1 GM Quetiapine Fumarate 200 mg HS PO 02/05/25 22:00 02/16/25 21:58 200 MG Pantoprazole Sodium 40 mg BID@0600,1700 PO 02/06/25 17:00 02/17/25 17:18 40 MG Patient Own Medication 10 mg DAILY PO 02/17/25 10:25 02/17/25 12:11 10 MG Laboratory Results Laboratory Tests 02/08/25 04:34 Microbiology Microbiology Date/Time Source Procedure Growth Status 02/03/25 15:12 Blood Blood Culture - Final NO GROWTH AFTER 5 DAYS OF INCUBATION. Complete Assessment/Plan Assessment/Plan 39-year-old male with a known history of depression, schizophrenia, chronic marijuana use, chronic tobacco use disorder initially presented to hospital with a abdominal pain worsening for last three months found to have 1. Acute on chronic abdominal pain suspected colitis 2. Diarrhea ruled out C diff 3. Leukocytosis likely reactive secondary to 1. 4. Suicidal ideas and intent, continuous sitter, re-evaluation were tele psych 5. Previous history of depression and schizophrenia, currently still suicidal -patient was initially placed on 5150 and inpatient psych facility arrangement, then later on patient was cleared but then again became suicidal, currently back on 5150, -patient was will be re-evaluated by tele psych again today. Plan discussed with: Patient My Orders Orders - LEVY VILLALTA MD Procedure Category Date Status Time (Nf) Vortioxetine PHA 02/17/25 In Process Hydrobromide (Trintell 10:25 Date of Service: Feb 17, 2025 Billing Provider: LEVY VILLALTA MD Common Visit Codes: NOT BILLABLE LEVY VILLALTA MD Feb 17, 2025 19:23
[2025-02-17] MEDS: ACETAMINOPHEN 325 MG TAB PO PRN (20:07)
--- NOTE | 2025-02-17 22:49 | DVHPN2 ---
Progress Note - Dictate Date Seen: Feb 17, 2025 Medical Necessity Reason Pt with a Central, PICC or Fol: No Subjective No new complaints; awake alert sitting up in bed Patient is tolerating a sof diet EGD findings reviewed with the patient regarding his chronic GERD and that he needs long-term maintenance with PPI vital signs Vital Sign Date Time Temp Pulse Resp B/P (MAP) Pulse Ox O2 Delivery O2 Flow Rate FiO2 02/17/25 16:57 97.8 77 16 116/77 (90) 98 97.8 02/17/25 08:00 Room Air* 0 21 Total Intake and Output 02/16/25 02/16/25 02/17/25 15:00 23:00 07:00 Intake Total 800 ml 900 ml Balance 800 ml 900 ml medications Current Medications Medications Dose Ordered Sig/Nicolas Route Start Time Stop Time Status Last Admin Dose Admin Ondansetron HCl 4 mg Q4HP PRN IV 02/03/25 16:45 02/09/25 09:18 4 MG Acetaminophen 650 mg Q6HP PRN PO 02/03/25 16:45 02/17/25 20:07 650 MG Nitroglycerin 0.4 mg Q5MINP PRN SL 02/03/25 16:45 Sucralfate 1 gm QID@0600,1130,1700,2200 PO 02/05/25 17:00 02/17/25 22:41 1 GM Quetiapine Fumarate 200 mg HS PO 02/05/25 22:00 02/17/25 22:41 200 MG Pantoprazole Sodium 40 mg BID@0600,1700 PO 02/06/25 17:00 02/17/25 17:18 40 MG Patient Own Medication 10 mg DAILY PO 02/17/25 10:25 02/17/25 12:11 10 MG objective General: NAD, AAOX3 Chest: lung reddy clear to auscultation Heart: RRR, no murmur Abdomen: non-distended, no tenderness to palpation, +BS laboratory and microbiology Laboratory Tests 02/08/25 04:34 Test 02/08/25 04:34 Range/Units Serum Glucose 104 74-106 mg/dL Problems(with codes): (1) Psychogenic nonepileptic seizure (2) Hiatal hernia with gastroesophageal reflux disease and esophagitis (3) Gastroduodenitis (4) Suicidal ideation Prognosis Plan Continue Protonix 40 mg p.o. twice a day Carafate 1 g p.o. twice a day Lifestyle and dietary modifications for GERD Outpatient follow up with GI Services as needed Discharge planning is in progress Dietary Evaluation Review Comments: continue current POC Expected Outcomes/Goals: To meet >75% estimated needs Fu 5-7 days Plan discussed with: Patient, Other (Nurse) ELIZABETH COHEN MD Feb 17, 2025 22:49
[2025-02-18 05:00] VITALS: BP 117/63; PULSE 76; RESP 19; TEMP 97.9; O2SAT 96
[2025-02-18 08:00] VITALS: PULSE 66; RESP 18; O2SAT 96
[2025-02-18 09:00] VITALS: BP 107/66; PULSE 70; RESP 18; TEMP 98; O2SAT 97
[2025-02-18 13:00] VITALS: BP 124/67; PULSE 74; RESP 18; TEMP 98; O2SAT 96
--- NOTE | 2025-02-18 18:10 | DVHDS2 ---
Discharge Summary Date of Admission Feb 03, 2025 at 16:45 Date of Discharge: Feb 18, 2025 Labs/Diagnostic Data: Laboratory Results Test 02/08/25 04:34 02/05/25 20:15 02/05/25 11:58 02/04/25 04:15 White Blood Count 6.0 10^3/uL (4.4-10.8) Red Blood Count 4.88 10^6/uL (4.5-5.90) Hemoglobin 15.9 g/dL (13.5-17.5) Hematocrit 44.6 % (41.0-53.0) Mean Corpuscular Volume 91.3 fL (80.0-100.0) Mean Corpuscular Hemoglobin 32.6 pg (28.0-32.0) Mean Corpuscular Hemoglobin Concent 35.6 g/dL (32.0-36.0) Red Cell Distribution Width 12.1 % (11.8-14.3) Platelet Count 200 10^3/uL (140-450) Mean Platelet Volume 9.3 fL (6.9-10.8) Neutrophils (%) (Auto) 48.1 % (37.0-80.0) Lymphocytes (%) (Auto) 39.8 % (10.0-50.0) Monocytes (%) (Auto) 9.3 % (0.0-12.0) Eosinophils (%) (Auto) 2.2 % (0.0-7.0) Basophils (%) (Auto) 0.6 % (0.0-2.0) Neutrophils # (Auto) 2.9 10 ^3/uL (1.6-8.6) Lymphocytes # (Auto) 2.4 10 ^3/uL (0.4-5.4) Monocytes # (Auto) 0.6 10 ^3/uL (0-1.3) Eosinophils # (Auto) 0.1 10 ^3/uL (0-0.8) Basophils # (Auto) 0 10 ^3/uL (0-0.2) Nucleated Red Blood Cells 0.2 % Sodium Level 143 mmol/L (136-145) Potassium Level 3.6 mmol/L (3.5-5.1) Chloride Level 105 mmol/L (98-107) Carbon Dioxide Level 28 mmol/L (20-31) Anion Gap 10 (5-15) Blood Urea Nitrogen 6 mg/dL (9-23) Creatinine 0.80 mg/dL (0.700-1.30) Glomerular Filtration Rate Calc 117 mL/min (>90) BUN/Creatinine Ratio 7.5 (10.0-20.0) Serum Glucose 104 mg/dL (74-106) Calcium Level 9.1 mg/dL (8.7-10.4) Total Bilirubin 0.4 mg/dL (0.2-1.0) Aspartate Amino Transferase (AST) 19 U/L (<34) Alanine Aminotransferase (ALT) 16 U/L (7-40) Alkaline Phosphatase 47 U/L (46-116) Total Protein 5.8 g/dL (5.7-8.2) Albumin 3.9 g/dL (3.2-4.8) Urine Opiates Screen Neg (NEGATIVE) Urine Fentanyl Screen Neg (NEGATIVE) Urine Barbiturates Screen Neg (NEGATIVE) Urine Phencyclidine Screen Neg (NEGATIVE) Urine Amphetamines Screen Neg (NEGATIVE) Urine Benzodiazepines Screen Neg (NEGATIVE) Urine Cocaine Screen Neg (NEGATIVE) Urine Cannabinoids Screen Pos (NEGATIVE) Prothrombin Time 11.3 sec (9.3-11.8) Prothrombin Time INR 1.07 (0.9-1.15) Lactic Acid Level 1.0 mmol/L (0.4-2.0) Test 02/03/25 13:05 Differential Total Cells Counted 100.0 (100) Neutrophils % (Manual) 86 (37.0-80.0) Band Neutrophils % (Manual) 2 Lymphocytes % (Manual) 10 (10.0-50.0) Monocytes % (Manual) 2 (0-12) Eosinophils % (Manual) 0 (0-7) Basophils % (Manual) 0 (0.0-2.0) Metamyelocytes % (manual) 0 Myelocytes % (Manual) 0 Promyelocytes % (Manual) 0 Blast Cells % (Manual) 0 Reactive Lymphocytes 0 Platelet Estimate Adequate Other Laboratory Tests 02/08/25 04:34 Brief Hx & Hospital Course: 39-year-old male with a known history of depression, schizophrenia, chronic marijuana use, chronic tobacco use disorder initially presented to hospital with a abdominal pain worsening for last three months found to have acute on chronic abdominal pain suspected colitis which was treated with IV antibiotics patient had diarrhea two C diff has been ruled out. Patient's leukocytosis was likely reactive. GI consulted who recommended EGD which shows evidence of grade C esophagitis with esophageal ulcers as well as [id number] gastroduodenitis with duodenal ulcers. Protonix and Carafate was recommended. Patient need to follow up with the outpatient GI Dr. Lavinia Stratton for the biopsy to make sure this not a malignancy or any H pylori. Patient has a history of suicidal ideas and thoughts in the past and this time he was suicidal again. Patient has had multiple back and forth suicidal v versus no suicidal. Patient has a few times placed on 5150 inpatient psych facility was recommended. There was no beds available. Eventually patient was re-evaluate about 3 times with the tele psych and today tele psych V with the patient to be discharged patient was seen and evaluated by me in the presence of bedside SABINO Paulino and I asked him all the suicidal intent and ideas any questions but he says he is no more suicidal he is on his was coming to pick him up. Patient's medication has been prescribed. Patient is being discharged under stable condition Condition at Discharge: Stable Final Diagnosis/Problems List 39-year-old male with a known history of depression, schizophrenia, chronic marijuana use, chronic tobacco use disorder initially presented to hospital with a abdominal pain worsening for last three months found to have 1. Acute on chronic abdominal pain suspected colitis 2. Diarrhea ruled out C diff 3. Leukocytosis likely reactive secondary to 1. 4. Suicidal ideas and intent, tele psych cleared the patient to be discharged 5. Previous history of depression and schizophrenia, currently not suicidal, tele psych cleared the patient to be discharged Discharge Disposition: Home SNF Discharge Will this Physician continue t: No Discharge Instruct/Medications Diet: Cardiac 2g Na,low cholest Activity: See Comment Activity comment: As tolerated Follow Up/Referral: Follow up with the PCP, Psychiatry, GI as an outpatient. Medications: As prescribed and reconciled Scheduled Benztropine Mesylate (Benztropine Mesylate), 1 MG PO Q12HR, (Reported) Gabapentin (Gabapentin), 100 MG PO BID, (Reported) Olanzapine (Olanzapine), 10 MG PO QPM, (Reported) Pantoprazole Sodium Sesquihydr (Pantoprazole Sodium), 40 MG PO BID@0600,1700 Quetiapine Fumerate (Seroquel), 200 MG PO QPM, (Reported) Risperidone (Risperidone), 4 MG PO DAILY, (Reported) Sucralfate (Carafate), 1 GM OR QIDACHS Vortioxetine Hydrobromide (Trintellix), 10 MG PO DAILY Discharge Statement: "Patient was advised to return to the ER or call 911 if any headaches, dizziness, shortness of breath, chest pain, abdominal pain, bleeding, fevers, or worsening of medical condition. Patient was counseled about treatment plan, medications, possible side effects, patientverbalized understanding. All questions were answered to the best of my ability. This discharge took greater then 30 minutes in planning, reviewing documentation, counseling the patient, and discussing with other team members." ASSESSMENT ASSESSMENT Assessment 39-year-old male with a known history of depression, schizophrenia, chronic marijuana use, chronic tobacco use disorder initially presented to hospital with a abdominal pain worsening for last three months found to have 1. Acute on chronic abdominal pain suspected colitis 2. Diarrhea ruled out C diff 3. Leukocytosis likely reactive secondary to 1. 4. Suicidal ideas and intent, tele psych cleared the patient to be discharged 5. Previous history of depression and schizophrenia, currently not suicidal, tele psych cleared the patient to be discharged Date of Service: Feb 18, 2025 Billing Provider: LEVY VILLALTA MD Common Visit Codes: NOT BILLABLE LEVY VILLALTA MD Feb 18, 2025 18:10
[2025-02-18] MEDS ORDERED: PANT40T PO (18:11)
[2025-02-18] MEDS ORDERED: SUCR1TAB31 OR (18:11)
[2025-02-18 18:15] VITALS: BP 108/62; PULSE 67; RESP 20; TEMP 97.8; O2SAT 97
== END 2025-02-18 19:50 | disposition home or self-care (01) | DRG 391 ==
LOC: EDUNIT# 11:38 → ER 11:38 → EDBD 11:38 → OVERFLOW 16:45 → TELE-EAST 02-04 16:57 → TELE-WESTW 02-06 21:26
PROVIDERS: ADMIT Internal Medicine; ATTEND Hospitalist
PROC: 0DB68ZX Excision of Stomach, Via Natural or Artificial Opening Endoscopic, Diagnostic (ICD-10-PCS; 2025-02-05)
PROC: 0DB38ZX Excision of Lower Esophagus, Via Natural or Artificial Opening Endoscopic, Diagnostic (ICD-10-PCS; 2025-02-05)
PROC: 0DB98ZX Excision of Duodenum, Via Natural or Artificial Opening Endoscopic, Diagnostic (ICD-10-PCS; principal; 2025-02-05 12:37)
DX: A09 Infectious gastroenteritis and colitis, unspecified (principal); N17.0 Acute kidney failure with tubular necrosis; E87.20 Acidosis, unspecified; R45.851 Suicidal ideations; K26.9 Duodenal ulcer, unspecified as acute or chronic, without hemorrhage or perforation; K29.70 Gastritis, unspecified, without bleeding; E87.6 Hypokalemia; K29.80 Duodenitis without bleeding; F20.9 Schizophrenia, unspecified; F17.210 Nicotine dependence, cigarettes, uncomplicated; R73.9 Hyperglycemia, unspecified; F43.25 Adjustment disorder with mixed disturbance of emotions and conduct; G89.29 Other chronic pain; K44.9 Diaphragmatic hernia without obstruction or gangrene; K20.90 Esophagitis, unspecified without bleeding; K29.90 Gastroduodenitis, unspecified, without bleeding; F41.9 Anxiety disorder, unspecified; F31.9 Bipolar disorder, unspecified; Z56.0 Unemployment, unspecified; Z90.49 Acquired absence of other specified parts of digestive tract; Z79.899 Other long term (current) drug therapy; Z91.51 Personal history of suicidal behavior
CPT/HCPCS: 36415; 74176; 80048; 80053; 80307; 83605; 85007; 85025; 85027; 85610; 87040; 96374; 96375; 99291; G0378; J2405; J2470; J2543; J2704; J3490